=== PATIENT | female | born 1975 | race American Indian/Alaskan Native ===

== ENCOUNTER 2018-10-28 10:41 | Emergency (ER) | payer BC ==
[2018-10-28 10:54] VITALS: BP 158/99
[2018-10-28] MEDS ORDERED: Penicillin G Benzathine/Procaine 600-600 1.2 Millunits/2 ML Syringe IM ONE (11:20)
--- NOTE | 2018-10-28 11:24 | EDM.PDOC ---
ED HPI GENERAL MEDICAL PROBLEM - General Chief Complaint: ENT Problem Stated Complaint: SORE THROAT & EAR Time Seen by Provider: 10/28/18 11:21 Source of Information: Reports: Patient History Limitations: Reports: No Limitations - History of Present Illness INITIAL COMMENTS - FREE TEXT/NARRATIVE: c/o recurrent h/o sore throat since yesterday, amox works ok but prefer IM. Throat Pain Score (Numeric/FACES): 6 - Related Data Allergies Allergy/AdvReac Type Severity Reaction Status Date / Time Sulfa (Sulfonamide Allergy Swollen Verified 10/28/18 10:50 Antibiotics) Eyes Home Meds: Home Meds Atenolol [Tenormin] 25 mg PO DAILY 08/30/15 [History] Hydroxychloroquine Sulfate [Plaquenil] 200 mg PO DAILY 08/30/15 [History] Ibuprofen 800 mg PO BID 08/30/15 [History] Lisinopril [Prinivil] 80 mg PO DAILY 08/30/15 [History] traMADol [Ultram] 50 mg PO Q6H PRN 08/30/15 [History] Past Medical History HEENT History: Reports: Impaired Vision Cardiovascular History: Reports: High Cholesterol, Hypertension Respiratory History: Reports: Asthma Gastrointestinal History: Reports: None Genitourinary History: Reports: None 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 Musculoskeletal History: Reports: Back Pain, Chronic Neurological History: Reports: Migraines Psychiatric History: Reports: None Endocrine/Metabolic History: Reports: Obesity/BMI 30+ Hematologic History: Reports: None Immunologic History: Reports: SLE Other Immunologic History: lupus Oncologic (Cancer) History: Reports: None Dermatologic History: Reports: None - Infectious Disease History Infectious Disease History: Reports: None - Past Surgical History Head Surgeries/Procedures: Reports: None Neurological Surgical History: Reports: None Musculoskeletal Surgical History: Reports: Other (See Below) Social & Family History - Family History Family Medical History: Noncontributory - Tobacco Use Smoking Status *Q: Never Smoker Second Hand Smoke Exposure: No - Caffeine Use Caffeine Use: Reports: Coffee - Recreational Drug Use Recreational Drug Use: No - Sexual History Sexual History: Reports: None - Living Situation & Occupation Living situation: Reports: Single Occupation: Employed ED ROS ENT - Review of Systems Review Of Systems: ROS reveals no pertinent complaints other than HPI. ED EXAM, ENT - Physical Exam Exam: See Below Exam Limited By: No Limitations General Appearance: Alert, WD/WN, Mild Distress, Other (discomfort) Ears: Hearing Grossly Normal Mouth/Throat: Pharyngeal Erythema, Tonsillar Erythema, Tonsillar Swelling. No: Tonsillar Exudates Head: Atraumatic Neck: Non-Tender, Full Range of Motion Respiratory/Chest: No Respiratory Distress Cardiovascular: Regular Rate, Rhythm GI/Abdominal: Soft, Non-Tender Neurological: Alert, Oriented, Normal Cognition, Normal Gait, No Motor/Sensory Deficits Psychiatric: Normal Affect, Normal Mood Skin: Warm, Dry, Normal Color Lymphatic: No Adenopathy Course - Vital Signs Last Recorded V/S: Last Vital Signs Temp 35.7 C 10/28/18 10:52 Pulse 100 10/28/18 10:52 Resp 18 10/28/18 10:52 BP 158/99 H 10/28/18 10:52 Pulse Ox 99 10/28/18 10:52 - Orders/Labs/Meds Orders: Active Orders 24 hr Category Date Time Status CULTURE STREP A CONFIRMATION [RM] Stat Lab 10/28/18 10:55 Results STREP SCRN A RAPID W CULT CONF [RM] Stat Lab 10/28/18 10:55 Results Meds: Medications Discontinued Medications Generic Name Dose Route Start Last Admin Trade Name Freq PRN Reason Stop Dose Admin Penicillin G Procaine/Benzathine 1.2 millunits 10/28/18 11:20 10/28/18 11:36 Bicillin C-R 600/600 IM 10/28/18 11:21 1.2 millunits ONETIME ONE Administration Departure - Departure Time of Disposition: 11:45 Disposition: Home, Self-Care 01 Condition: Good Clinical Impression: Tonsillopharyngitis - Discharge Information Instructions: Tonsillitis, [id number] Forms: ED Department Discharge Additional Instructions: 1) try salt water gargle 2) avoid solid foods next 48 hours 3) follow up at clinic - My Orders Last 24 Hours: My Active Orders 10/28/18 10:55 CULTURE STREP A CONFIRMATION [RM] Stat STREP SCRN A RAPID W CULT CONF [RM] Stat - Assessment/Plan Last 24 Hours: My Active Orders 10/28/18 10:55 CULTURE STREP A CONFIRMATION [RM] Stat STREP SCRN A RAPID W CULT CONF [RM] Stat
== END 2018-10-28 11:48 | disposition home or self-care (01) ==
LOC: DL.ED 10:41
DX: J03.90 Acute tonsillitis, unspecified (principal); I10 Essential (primary) hypertension; E66.9 Obesity, unspecified; Z88.2 Allergy status to sulfonamides
CPT/HCPCS: 87081; 87430; 96372; 99283; J0558

== ENCOUNTER 2018-11-12 17:41 | Emergency (ER) | payer BC ==
[2018-11-12 18:06] VITALS: BP 157/96; PULSE 83
[2018-11-12] MEDS ORDERED: Promethazine 25 MG/ML SDV IM ONE (19:01)
--- NOTE | 2018-11-12 19:06 | EDM.PDOC ---
ED HPI GENERAL MEDICAL PROBLEM - General Chief Complaint: Neck Problem Stated Complaint: BACK/NECK PAIN Time Seen by Provider: 11/12/18 19:03 Source of Information: Reports: Patient History Limitations: Reports: No Limitations - History of Present Illness INITIAL COMMENTS - FREE TEXT/NARRATIVE: onset left shoulder pain and neck pain since Tuesday. denies trauma. 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 Left Neck Pain Score (Numeric/FACES): 8 - Related Data Allergies Allergy/AdvReac Type Severity Reaction Status Date / Time Sulfa (Sulfonamide Allergy Swollen Verified 11/12/18 18:03 Antibiotics) Eyes Home Meds: Home Meds Atenolol [Tenormin] 25 mg PO DAILY 08/30/15 [History] Hydroxychloroquine Sulfate [Plaquenil] 200 mg PO DAILY 08/30/15 [History] Ibuprofen 800 mg PO BID 08/30/15 [History] Lisinopril [Prinivil] 80 mg PO DAILY 08/30/15 [History] traMADol [Ultram] 50 mg PO Q6H PRN 08/30/15 [History] Past Medical History HEENT History: Reports: Impaired Vision Cardiovascular History: Reports: High Cholesterol, Hypertension Respiratory History: Reports: Asthma Gastrointestinal History: Reports: None Genitourinary History: Reports: None 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 Musculoskeletal History: Reports: Back Pain, Chronic Neurological History: Reports: Migraines Psychiatric History: Reports: None Endocrine/Metabolic History: Reports: Obesity/BMI 30+ Hematologic History: Reports: None Immunologic History: Reports: SLE Other Immunologic History: lupus Oncologic (Cancer) History: Reports: None Dermatologic History: Reports: None - Infectious Disease History Infectious Disease History: Reports: None - Past Surgical History Head Surgeries/Procedures: Reports: None Female Surgical History: Reports: Hysterectomy Neurological Surgical History: Reports: None Musculoskeletal Surgical History: Reports: Other (See Below) Social & Family History - Family History Family Medical History: Noncontributory - Tobacco Use Smoking Status *Q: Never Smoker Second Hand Smoke Exposure: No - Caffeine Use Caffeine Use: Reports: None - Recreational Drug Use Recreational Drug Use: No - Sexual History Sexual History: Reports: None - Living Situation & Occupation Living situation: Reports: Single Occupation: Employed ED ROS GENERAL - Review of Systems Review Of Systems: ROS reveals no pertinent complaints other than HPI. ED EXAM, UPPER BACK/NECK PAIN - Physical Exam Exam: See Below Exam Limited By: No Limitations General Appearance: Alert, WD/WN, Mild Distress, Other (discomfort) Ears Exam: Hearing Grossly Normal Throat/Mouth Exam: Normal Voice, No Airway Compromise Head Exam: Atraumatic Neck Exam: Full Range of Motion, Normal Alignment, Paraspinous Muscle Tender, Tenderness, Tender Lateral, Other (left C5-6-7 trapezius region) Nexus Criteria: No: Posterior, Midline Cervical Tenderness, Evidence of Intoxication, Altered Level of Consciousness, Focal Neurological Deficit, Painful Distraction Injuries Cardiovascular/Respiratory: Regular Rate, Rhythm, No Respiratory Distress GI/Abdominal: Soft, Non-Tender Extremities: Other (left should ROM tender at trapezius region) Neurologic: No Motor/Sensory Deficits, Alert, Oriented x 3 Psychiatric: Tearful Skin Exam: Normal Color, Warm/Dry Lymphatic: No Adenopathy Course - Vital Signs Last Recorded V/S: Last Vital Signs Temp 36.3 C 11/12/18 18:04 Pulse 83 11/12/18 18:04 Resp 20 11/12/18 18:04 BP 157/96 H 11/12/18 18:04 Pulse Ox 98 11/12/18 18:04 - Orders/Labs/Meds Meds: Medications Discontinued Medications Generic Name Dose Route Start Last Admin Trade Name Freq PRN Reason Stop Dose Admin Hydrocodone Bitart/Acetaminophen 1 tab 11/12/18 19:43 [place] 325-10 Mg PO 11/12/18 19:44 ONETIME ONE Orphenadrine Citrate 60 mg 11/12/18 19:15 Norflex IM Q12H DESIREE Orphenadrine Citrate 60 mg 11/12/18 19:07 11/12/18 19:12 Norflex IM 11/12/18 19:08 60 mg ONETIME ONE Administration Promethazine HCl 25 mg 11/12/18 19:01 11/12/18 19:13 Phenergan IM 11/12/18 19:02 25 mg ONETIME ONE Administration - Re-Assessments/Exams Free Text/Narrative Re-Assessment/Exam: 11/12/18 19:44 re-exam; s/p norflex + phenergan = better Departure - Departure Time of Disposition: 19:45 Disposition: Home, Self-Care 01 Condition: Good Clinical Impression: Trapezius muscle spasm - Discharge Information Instructions: Muscle Cramps and Spasms, [id number] Forms: ED Department Discharge Additional Instructions: 1) try ice or heat to sore areas 2) follow up at clinic 3) avoid lifting rx given; flexeril 10mg tid prn x 12
[2018-11-12] MEDS ORDERED: Acetaminophen/HYDROcodone 325-10 MG Tab PO ONE (19:43)
== END 2018-11-12 19:57 | disposition home or self-care (01) ==
LOC: DL.ED 17:41
DX: M62.830 Muscle spasm of back (principal); E78.00 Pure hypercholesterolemia, unspecified; I10 Essential (primary) hypertension; J45.909 Unspecified asthma, uncomplicated; Z88.2 Allergy status to sulfonamides; Z79.899 Other long term (current) drug therapy
CPT/HCPCS: 96372; 99282; A9270; J2550; J2360

== ENCOUNTER 2019-07-28 12:28 | Emergency (ER) | payer BC ==
[2019-07-28] MEDS ORDERED: Aspirin 81 MG Tab.Chew PO ONE (12:49)
[2019-07-28] MEDS ORDERED: Nitroglycerin 0.4 MG Tab.SL SL ONE ×2 (12:56→13:34)
[2019-07-28 13:36] LABS: ANION GAP 13.9; CHLORIDE,CL 110 mmol/L (101-111); SODIUM,NA 136 mmol/L (135-145)
[2019-07-28 17:01] VITALS: BP 138/87; PULSE 104
--- NOTE | 2019-07-28 17:46 | EDM.PDOC ---
Scribed by Mariela Finnegan 07/28/19 [id number] for Yasmin Bower PA-C ED HPI GENERAL MEDICAL PROBLEM - General Chief Complaint: Chest Pain Stated Complaint: CHEST PAIN, NECK AND NAUSEA Time Seen by Provider: 07/28/19 13:04 Source of Information: Reports: Patient, RN, RN Notes Reviewed History Limitations: Reports: No Limitations - History of Present Illness INITIAL COMMENTS - FREE TEXT/NARRATIVE: Patient presents to ER with chest pain across the chest this A.M. and nausea at onset. She has some radiation to left arm 08/30. Now the nausea is absent and arm pain gone. No shortness of breath. No fever, chills or urinary symptoms. She has had symptoms with a cough for the last week. Onset: Today Duration: Constant Location: Reports: Chest Quality: Reports: Ache Severity: Moderate Improves with: Reports: None Worsens with: Reports: None Associated Symptoms: Reports: No Other Symptoms Chest Pain Score (Numeric/FACES): 4 - Related Data Allergies Allergy/AdvReac Type Severity Reaction Status Date / Time Sulfa (Sulfonamide Allergy Swollen Verified 07/28/19 12:35 Antibiotics) Eyes Home Meds: Home Meds Atenolol [Tenormin] 25 mg PO DAILY 08/30/15 [History] Hydroxychloroquine Sulfate [Plaquenil] 200 mg PO DAILY 08/30/15 [History] Lisinopril [Prinivil] 80 mg PO DAILY 08/30/15 [History] traMADol [Ultram] 50 mg PO Q6H PRN 08/30/15 [History] Meloxicam 1 tab PO DAILY 07/28/19 [History] Past Medical History HEENT History: Reports: Impaired Vision Cardiovascular History: Reports: High Cholesterol, Hypertension Respiratory History: Reports: Asthma Gastrointestinal History: Reports: None Genitourinary History: Reports: None 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 Musculoskeletal History: Reports: Back Pain, Chronic Neurological History: Reports: Migraines Psychiatric History: Reports: None Endocrine/Metabolic History: Reports: Obesity/BMI 30+ Hematologic History: Reports: None Immunologic History: Reports: SLE Other Immunologic History: lupus Oncologic (Cancer) History: Reports: None Dermatologic History: Reports: None - Infectious Disease History Infectious Disease History: Reports: None - Past Surgical History Head Surgeries/Procedures: Reports: None Female Surgical History: Reports: Hysterectomy Neurological Surgical History: Reports: None Musculoskeletal Surgical History: Reports: Other (See Below) Social & Family History - Family History Family Medical History: Noncontributory - Tobacco Use Smoking Status *Q: Current Every Day Smoker Years of Tobacco use: 20 Packs/Tins Daily: 0.5 - Caffeine Use Caffeine Use: Reports: Tea - Recreational Drug Use Recreational Drug Use: No - Sexual History Sexual History: Reports: None - Living Situation & Occupation Living situation: Reports: Single Occupation: Employed ED ROS GENERAL - Review of Systems Review Of Systems: Comprehensive ROS is negative, except as noted in HPI. ED EXAM, GENERAL - Physical Exam Exam: See Below Exam Limited By: No Limitations General Appearance: Obese Eye Exam: Bilateral Eye: EOMI, Normal Inspection, PERRL Ears: Normal External Exam, Normal Canal, Hearing Grossly Normal, Normal TMs Nose: Normal Inspection, Normal Mucosa, No Blood Throat/Mouth: Normal Inspection, Normal Lips, Normal Teeth, Normal Gums, Normal Oropharynx, Normal Voice, No Airway Compromise Head: Atraumatic, Normocephalic Neck: Normal Inspection, Supple, Non-Tender, Full Range of Motion Respiratory/Chest: Lungs Clear, Normal Breath Sounds. No: Crackles, Rales, Rhonchi, Wheezing Cardiovascular: Normal Peripheral Pulses, Regular Rate, Rhythm, No Edema, No Gallop, No JVD, No Murmur, No Rub GI/Abdominal: Normal Bowel Sounds (x4. ), Soft, Non-Tender, No Organomegaly, No Distention, No Abnormal Bruit, No Mass. No: Hepatomegaly, Splenomegaly (Female) Exam: Deferred Rectal (Female) Exam: Deferred Back Exam: Normal Inspection, Full Range of Motion. No: CVA Tenderness (L), CVA Tenderness (R) Extremities: Normal Inspection, Normal Range of Motion, Non-Tender, Normal Capillary Refill, No Pedal Edema Neurological: Alert, Oriented, CN II-XII Intact, Normal Cognition, Normal Gait, Normal Reflexes, No Motor/Sensory Deficits Psychiatric: Normal Affect, Normal Mood Skin Exam: Warm, Dry, Intact, Normal Color, No Rash EKG INTERPRETATION EKG Date: 07/28/19 Time: 12:37 Rhythm: Other (sinus rhythm) Rate (Beats/Min): 93 EKG Interpretation Comments: consider left atrial enlargement. Course - Vital Signs Last Recorded V/S: Last Vital Signs Temp 97.5 F 07/28/19 12:36 Pulse 104 H 07/28/19 17:00 Resp 20 07/28/19 17:00 BP 138/87 07/28/19 17:00 Pulse Ox 98 07/28/19 17:00 - Orders/Labs/Meds Orders: Active Orders 24 hr Category Date Time Status EKG Documentation Completion [RC] URGENT Care 07/28/19 12:49 Active EKG Documentation Completion [RC] URGENT Care 07/28/19 16:50 Active Chest 1V Frontal [CR] Urgent Exams 07/28/19 12:49 Taken Labs: Laboratory Tests 07/28/19 07/28/19 07/28/19 Range/Units 13:11 13:11 13:11 WBC 6.5 (5.0-10.0) 10^3/uL RBC 5.40 (4.2-5.4) 10^6/uL Hgb 15.2 (12.0-16.0) g/dL Hct 44.4 (37.0-47.0) % MCV 82.2 (80-100) fL MCH 28.1 (27.0-34.0) pg MCHC 34.2 (33.0-35.0) g/dL Plt Count 201 (150-450) 10^3/uL Neut % (Auto) 75.1 (42.2-75.2) % Lymph % (Auto) 18.3 L (20.5-50.1) % Traverse % (Auto) 6.1 (2-8) % Eos % (Auto) 0.3 L (1.0-3.0) % Baso % (Auto) 0.2 (0.0-1.0) % D-Dimer, Quantitative 125 (0-400) ng/mL Sodium 136 (135-145) mmol/L Potassium 3.9 (3.6-5.0) mmol/L Chloride 110 (101-111) mmol/L Carbon Dioxide 16.0 L (21.0-31.0) mmol/L Anion Gap 13.9 BUN 19 H (7-18) mg/dL Creatinine 0.5 L (0.6-1.3) mg/dL Est Cr Clr Drug Dosing 121.25 mL/min Estimated GFR (MDRD) > 60 BUN/Creatinine Ratio 38.00 Glucose 101 (74-105) mg/dL Calcium 8.9 (8.4-10.2) mg/dl Total Bilirubin 0.7 (0.2-1.0) mg/dL AST 23 (10-42) IU/L ALT 21 (10-60) IU/L Alkaline Phosphatase 69 (42-121) IU/L CK-MB (CK-2) (0.4-4.7) ng/mL Troponin I < 0.02 (0.00-0.02) ng/ml Total Protein 7.8 (6.7-8.2) g/dl Albumin 4.0 (3.2-5.5) g/dl Globulin 3.8 Albumin/Globulin Ratio 1.05 07/28/19 07/28/19 Range/Units 13:11 16:50 WBC (5.0-10.0) 10^3/uL RBC (4.2-5.4) 10^6/uL Hgb (12.0-16.0) g/dL Hct (37.0-47.0) % MCV (80-100) fL MCH (27.0-34.0) pg MCHC (33.0-35.0) g/dL Plt Count (150-450) 10^3/uL Neut % (Auto) (42.2-75.2) % Lymph % (Auto) (20.5-50.1) % Traverse % (Auto) (2-8) % Eos % (Auto) (1.0-3.0) % Baso % (Auto) (0.0-1.0) % D-Dimer, Quantitative (0-400) ng/mL Sodium (135-145) mmol/L Potassium (3.6-5.0) mmol/L Chloride (101-111) mmol/L Carbon Dioxide (21.0-31.0) mmol/L Anion Gap BUN (7-18) mg/dL Creatinine (0.6-1.3) mg/dL Est Cr Clr Drug Dosing mL/min Estimated GFR (MDRD) BUN/Creatinine Ratio Glucose (74-105) mg/dL Calcium (8.4-10.2) mg/dl Total Bilirubin (0.2-1.0) mg/dL AST (10-42) IU/L ALT (10-60) IU/L Alkaline Phosphatase (42-121) IU/L CK-MB (CK-2) 3.00 (0.4-4.7) ng/mL Troponin I < 0.02 (0.00-0.02) ng/ml Total Protein (6.7-8.2) g/dl Albumin (3.2-5.5) g/dl Globulin Albumin/Globulin Ratio Meds: Medications Discontinued Medications Generic Name Dose Route Start Last Admin Trade Name Baldo PRN Reason Stop Dose Admin Aspirin 324 mg 07/28/19 12:49 07/28/19 12:55 Aspirin PO 07/28/19 12:50 324 mg ONETIME ONE Administration Nitroglycerin 0.4 mg 07/28/19 12:56 07/28/19 13:00 Nitrostat SL 07/28/19 12:57 0.4 mg ONETIME ONE Administration Nitroglycerin 0.4 mg 07/28/19 13:34 07/28/19 13:35 Nitrostat SL 07/28/19 13:35 0.4 mg ONETIME ONE Administration - Radiology Interpretation Free Text/Narrative:: CXR No acute findings, see report - Re-Assessments/Exams Free Text/Narrative Re-Assessment/Exam: 07/28/19 17:45 Pain free,No complaints busy texting on phone, Results reviewed. No questions from patient. Departure - Departure Time of Disposition: 17:29 Disposition: Home, Self-Care 01 Condition: Good Clinical Impression: Non-cardiac chest pain Instructions: Nonspecific Chest Pain, [id number] Forms: ED Department Discharge Additional Instructions: light bland diet low acid foods, low fat foods avoid tobacco and caffeine clinic follow up this weed Sepsis Event Note - Evaluation Sepsis Screening Result: No Definite Risk - Focused Exam Vital Signs: Vital Signs Temp Pulse Resp BP BP Pulse Ox 07/28/19 17:00 104 H 20 138/87 98 07/28/19 14:55 90 24 H 126/82 99 07/28/19 14:10 98 23 H 126/92 H 99 07/28/19 13:35 130/78 07/28/19 13:00 146/94 H 07/28/19 12:36 97.5 F 93 16 143/85 H 100 Date Exam was Performed: 07/28/19 Time Exam was Performed: 17:43 - My Orders Last 24 Hours: My Active Orders 07/28/19 12:49 EKG Documentation Completion [RC] URGENT Chest 1V Frontal [CR] Urgent 07/28/19 16:50 EKG Documentation Completion [RC] URGENT - Assessment/Plan Last 24 Hours: My Active Orders 07/28/19 12:49 EKG Documentation Completion [RC] URGENT Chest 1V Frontal [CR] Urgent 07/28/19 16:50 EKG Documentation Completion [RC] URGENT I have read and agree with the documentation that has been completed regarding this visit. By signing this record, I attest that the documentation was completed in my physical presence and is an accurate record of the encounter.
== END 2019-07-28 18:30 | disposition home or self-care (01) ==
LOC: DL.ED 12:28
DX: R07.89 Other chest pain (principal); J45.909 Unspecified asthma, uncomplicated; I10 Essential (primary) hypertension; E66.9 Obesity, unspecified; Z68.43 Body mass index [BMI] 50.0-59.9, adult; M32.9 Systemic lupus erythematosus, unspecified; Z88.2 Allergy status to sulfonamides; Z79.899 Other long term (current) drug therapy; F17.210 Nicotine dependence, cigarettes, uncomplicated
CPT/HCPCS: 36415; 71045; 80053; 82553; 84484; 85025; 85379; 93005; 99285; A9270

== ENCOUNTER 2020-05-26 08:38 | Inpatient (IN) | payer BC, OTHER ==
--- NOTE | 2020-05-26 08:45 | EDM.PDOC ---
ED HPI GENERAL MEDICAL PROBLEM - General Chief Complaint: Respiratory Problem Stated Complaint: AMBULANCE Time Seen by Provider: 05/26/20 08:43 Source of Information: Reports: Patient, Old Records, RN, RN Notes Reviewed History Limitations: Reports: No Limitations - History of Present Illness INITIAL COMMENTS - FREE TEXT/NARRATIVE: Pt arrives from home by ambulance with c/o 2 weeks of progressively worsening shortness of breath. She admits to mild sore throat, and sharp chest pain with deep inspiration or cough. Activity such as walking makes the shortness of breath much worse. She denies radiating pain, fever, chills, headache, loss of taste or smell, or any known COVID exposures. Pt has Hx of asthma. Onset: Gradual Duration: Week(s): (1), Constant, Getting Worse Location: Reports: Chest Quality: Reports: Ache, Pressure Severity: Moderate Improves with: Reports: None Worsens with: Reports: Breathing, Other (Activity/Exertion) Context: Denies: Sick Contact Associated Symptoms: Reports: No Other Symptoms Chest Pain Score (Numeric/FACES): 5 - Related Data Allergies Allergy/AdvReac Type Severity Reaction Status Date / Time Sulfa (Sulfonamide Allergy Swollen Verified 05/26/20 08:49 Antibiotics) Eyes Home Meds: Home Meds Hydroxychloroquine Sulfate [Plaquenil] 200 mg PO DAILY 08/30/15 [History] Lisinopril [Prinivil] 80 mg PO DAILY 08/30/15 [History] atenoloL [Tenormin] 25 mg PO DAILY 08/30/15 [History] traMADol [Ultram] 50 mg PO Q6H PRN 08/30/15 [History] Meloxicam 1 tab PO DAILY 07/28/19 [History] Past Medical History HEENT History: Reports: Impaired Vision Cardiovascular History: Reports: High Cholesterol, Hypertension Respiratory History: Reports: Asthma Gastrointestinal History: Reports: None Genitourinary History: Reports: None 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 TAX ADVISOR 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: Reports: None Musculoskeletal History: Reports: Back Pain, Chronic Neurological History: Reports: Migraines Psychiatric History: Reports: None Endocrine/Metabolic History: Reports: Obesity/BMI 30+ Hematologic History: Reports: None Immunologic History: Reports: SLE Other Immunologic History: lupus Oncologic (Cancer) History: Reports: None Dermatologic History: Reports: None - Infectious Disease History Infectious Disease History: Reports: None - Past Surgical History Head Surgeries/Procedures: Reports: None Female Surgical History: Reports: Hysterectomy Neurological Surgical History: Reports: None Musculoskeletal Surgical History: Reports: Other (See Below) Social & Family History - Family History Family Medical History: No Pertinent Family History - Caffeine Use Caffeine Use: Reports: Tea - Sexual History Sexual History: Reports: None - Living Situation & Occupation Living situation: Reports: Single Occupation: Employed ED ROS GENERAL - Review of Systems Review Of Systems: Comprehensive ROS is negative, except as noted in HPI. ED EXAM, GENERAL - Physical Exam Exam: See Below Exam Limited By: No Limitations General Appearance: Alert, No Apparent Distress, Anxious, Obese Eye Exam: Bilateral Eye: Normal Inspection Nose: Normal Inspection, Normal Mucosa, No Blood Throat/Mouth: Normal Lips, Normal Oropharynx, Normal Voice, No Airway Compromise, Other (Mild pharyngeal erythema) Head: Atraumatic, Normocephalic Neck: Normal Inspection, Supple, Non-Tender, Full Range of Motion Respiratory/Chest: No Respiratory Distress, No Accessory Muscle Use, Chest Non- Tender, Wheezing, Other (Tight breath sounds with increased work of breathing). No: Crackles, Rales, Rhonchi, Stridor Cardiovascular: Regular Rate, Rhythm, No Edema, Tachycardia GI/Abdominal: Normal Bowel Sounds, Soft, Non-Tender, Other (Severely obese abdomen) Back Exam: Normal Inspection Extremities: Normal Inspection, Normal Range of Motion, Non-Tender, No Pedal Edema, Normal Capillary Refill. No: Joint Swelling, Chuck's Sign Neurological: Alert, Oriented, CN II-XII Intact, Normal Cognition, Normal Gait, No Motor/Sensory Deficits Psychiatric: Anxious Skin Exam: Warm, Dry, Intact, Normal Color, No Rash #1 Interpretation EKG Date: 05/26/20 Time: 08:43 Rhythm: Other (Sinus Tach) Rate (Beats/Min): 106 [place]: Normal P-Wave: Present QRS: Other (Inferior Q waves) ST-T: Other (Borderline flat T waves in diffuse leads. No acute ischemic changes.) QT: Normal Comparison: No Change Course - Vital Signs Last Recorded V/S: Last Vital Signs Temp 97.7 F 05/26/20 08:52 Pulse 102 H 05/26/20 09:32 Resp 27 H 05/26/20 08:52 BP 156/91 H 05/26/20 08:52 Pulse Ox 97 05/26/20 08:52 - Orders/Labs/Meds Orders: Active Orders 24 hr Category Date Time Status EKG 12 Lead [EKG Documentation Completion] [] STAT Care 05/26/20 08:42 Active Peripheral IV Care [RC] . DIRECTED Care 05/26/20 09:52 Active RT Aerosol Therapy [RC] ASDIRECTED Care 05/26/20 09:01 Active CULTURE STREP A CONFIRMATION [] Stat Lab 05/26/20 09:26 Results STREP SCRN A RAPID W CULT CONF [] Stat Lab 05/26/20 09:26 Results Heparin Sodium/0.45% NaCl [Heparin 25,000 Units in 1/2 Med 05/26/20 12:45 Active NS 500 ML] 25,000 units in 500 ml IV TITRATE Sodium Chloride 0.9% [Saline Flush] Med 05/26/20 09:51 Active 10 ml FLUSH ASDIRECTED PRN Peripheral IV Insertion Adult [OM.PC] Stat Oth 05/26/20 09:51 Ordered Medication Orders Heparin Sodium/Sodium Chloride (Heparin 25,000 Units In 1/2 Ns 500 Ml) 25,000 units in 500 mls @ 50.948 mls/hr IV TITRATE DESIREE; Protocol Last Admin: 05/26/20 12:40 Dose: 18.3 units/kg/hr, 51.797 mls/hr Documented by: NAYE Cosigned by: TIANNA Sodium Chloride (Saline Flush) 10 ml FLUSH ASDIRECTED PRN PRN Reason: Keep Vein Open Labs: Laboratory Tests 05/26/20 05/26/20 05/26/20 Range/Units 08:38 08:56 08:56 WBC 2.2 L (5.0-10.0) 10^3/uL RBC 4.35 (4.2-5.4) 10^6/uL Hgb 11.3 L D (12.0-16.0) g/dL Hct 33.9 L (37.0-47.0) % MCV 77.9 L D (80-100) fL MCH 26.0 L (27.0-34.0) pg MCHC 33.3 (33.0-35.0) g/dL Plt Count 119 L D (150-450) 10^3/uL Neut % (Auto) 76.4 H (42.2-75.2) % Lymph % (Auto) 19.0 L (20.5-50.1) % [place] % (Auto) 2.7 (2-8) % Eos % (Auto) 1.4 (1.0-3.0) % Baso % (Auto) 0.5 (0.0-1.0) % PT (9.0-12.0) SEC INR (0.9-1.2) APTT (22.0-34.0) SEC D-Dimer, Quantitative (0-400) ng/mL Sodium 144 (136-145) mmol/L Potassium 3.0 L (3.5-5.1) mmol/L Chloride 107 (98-107) mmol/L Carbon Dioxide 21 (21-32) mmol/L Anion Gap 19.0 H (7-13) mEq/L BUN 21 H (7-18) mg/dL Creatinine 0.72 (0.55-1.02) mg/dL Est Cr Clr Drug Dosing 83.34 mL/min Estimated GFR (MDRD) > 60 BUN/Creatinine Ratio 29.2 (No establ ref range) Glucose 118 H (74-99) mg/dL Calcium 8.1 L (8.5-10.1) mg/dL Magnesium (1.8-2.4) mg/dL Total Bilirubin 0.3 (0.2-1.0) mg/dL AST 18 (15-37) U/L ALT 12 L (14-59) U/L Alkaline Phosphatase 76 (46-116) U/L Troponin I < 0.017 (0.000-0.056) ng/mL C-Reactive Protein 12.8 H (0.0-0.9) mg/dL Total Protein 6.7 (6.4-8.2) g/dL Albumin 2.5 L (3.4-5.0) g/dL Globulin 4.2 Albumin/Globulin Ratio 0.60 HCG, Qual Negative SARS-CoV-2 RNA (TAVO) Negative (NEGATIVE) 05/26/20 05/26/20 Range/Units 08:56 08:56 WBC (5.0-10.0) 10^3/uL RBC (4.2-5.4) 10^6/uL Hgb (12.0-16.0) g/dL Hct (37.0-47.0) % MCV (80-100) fL MCH (27.0-34.0) pg MCHC (33.0-35.0) g/dL Plt Count (150-450) 10^3/uL Neut % (Auto) (42.2-75.2) % Lymph % (Auto) (20.5-50.1) % [place] % (Auto) (2-8) % Eos % (Auto) (1.0-3.0) % Baso % (Auto) (0.0-1.0) % PT 10.9 (9.0-12.0) SEC INR 1.2 (0.9-1.2) APTT 23.8 (22.0-34.0) SEC D-Dimer, Quantitative > 5000 H (0-400) ng/mL Sodium (136-145) mmol/L Potassium (3.5-5.1) mmol/L Chloride (98-107) mmol/L Carbon Dioxide (21-32) mmol/L Anion Gap (7-13) mEq/L BUN (7-18) mg/dL Creatinine (0.55-1.02) mg/dL Est Cr Clr Drug Dosing mL/min Estimated GFR (MDRD) BUN/Creatinine Ratio (No establ ref range) Glucose (74-99) mg/dL Calcium (8.5-10.1) mg/dL Magnesium 1.9 (1.8-2.4) mg/dL Total Bilirubin (0.2-1.0) mg/dL AST (15-37) U/L ALT (14-59) U/L Alkaline Phosphatase (46-116) U/L Troponin I (0.000-0.056) ng/mL C-Reactive Protein (0.0-0.9) mg/dL Total Protein (6.4-8.2) g/dL Albumin (3.4-5.0) g/dL Globulin Albumin/Globulin Ratio HCG, Qual SARS-CoV-2 RNA (TAVO) (NEGATIVE) Meds: Medications Generic Name Dose Route Start Last Admin Trade Name Freq PRN Reason Stop Dose Admin Heparin Sodium/Sodium Chloride 25,000 units in 500 mls @ 50.948 mls/hr 05/26/20 12:45 05/26/20 12:40 Heparin 25,000 Units In 1/2 Ns 500 Ml IV 18.3 units/kg/hr TITRATE DESIREE 51.797 mls/hr Administration Protocol 18 UNITS/KG/HR Sodium Chloride 10 ml 05/26/20 09:51 Saline Flush FLUSH ASDIRECTED PRN Keep Vein Open Discontinued Medications Generic Name Dose Route Start Last Admin Trade Name Baldo PRN Reason Stop Dose Admin Albuterol/Ipratropium 3 ml 05/26/20 09:01 05/26/20 09:24 Duoneb 3.0-0.5 Mg/3 Ml NEB 05/26/20 09:02 3 ml ONETIME ONE Administration Heparin Sodium (Porcine) 5,000 units 05/26/20 12:33 05/26/20 12:40 Heparin Sodium IVPUSH 05/26/20 12:34 5,000 units .BOLUS ONE Administration Sodium Chloride 1,000 mls @ 999 mls/hr 05/26/20 09:53 05/26/20 09:59 Normal Saline IV 05/26/20 10:53 999 mls/hr .BOLUS ONE Administration Magnesium Sulfate 4 gm in 100 mls @ 300 mls/hr 05/26/20 09:54 05/26/20 11:08 Magnesium Sulfate In Water Premix IV 05/26/20 10:13 300 mls/hr ONETIME ONE Administration Iopamidol 100 ml 05/26/20 09:51 05/26/20 12:09 Isovue-370 (76%) IVPUSH 05/26/20 09:52 83 ml ONETIME ONE Administration Methylprednisolone Sodium Succinate 125 mg 05/26/20 09:01 05/26/20 09:25 Solu-Medrol IVPUSH 05/26/20 09:02 125 mg ONETIME ONE Administration Potassium Chloride 40 meq 05/26/20 09:46 05/26/20 09:53 Klor-Con 10 PO 05/26/20 09:47 40 meq ONETIME ONE Administration - Radiology Interpretation Free Text/Narrative:: [facility] Final Radiology Report Call: [phone] assistance Online chat: [email or web address] Name: SHIRLEY TERAN Age: 45Years F Date: 05/26/2020 SSN: -- : [id number] Study: CR CHEST 1V FRONTAL Requesting Physician: SHANTELLE GLASGOW Images: 1 Addl Studies: Provided Clinical History: chest pain, shortness of breath Contrast: Contrast Medium: Contrast Amount: Contrast Method: CONFIDENTIALITY STATEMENT This report is intended only for use by the referring physician, and only in accordance with law. If you received this in error, call [phone]. Page 1 of 1 PROCEDURE INFORMATION: Exam: XR Chest, 1 View Exam date and time: 05/26/2020 9:11 AM Age: 45 years old Clinical indication: Chest pain; Additional info: Chest pain, shortness of breath TECHNIQUE: Imaging protocol: XR of the chest Views: 1 view. COMPARISON: CR Chest 1V Frontal 07/28/2019 1:00 PM FINDINGS: Lungs: Unremarkable. No consolidation. Pleural space: Unremarkable. No pleural effusion. No pneumothorax. Heart/Mediastinum: Unremarkable. No cardiomegaly. Bones/joints: Unremarkable. Other findings: Shallow inspiration. IMPRESSION: No acute findings. Shallow inspiration. Thank you for allowing us to participate in the care of your patient. Dictated and Authenticated by: Sindy Maya MD 05/26/2020 9:28 AM Central Time ([place] & [place]) CT Chest PE Study: PE Rt pulmonary arteries, Rt middle and lower lobe peripheral pleural based densities, see Rad. report. Departure - Departure Time of Disposition: 13:03 (admitted to Dr. Lombardo) Disposition: Admitted As Inpatient 68 Condition: Fair Clinical Impression: Right pulmonary embolus, Hypokalemia - Discharge Information *PRESCRIPTION DRUG MONITORING PROGRAM REVIEWED*: Not Applicable *COPY OF PRESCRIPTION DRUG MONITORING REPORT IN PATIENT YAS: Not Applicable Forms: ED Department Discharge Sepsis Event Note (ED) - Focused Exam Vital Signs: Vital Signs Temp Pulse Resp BP Pulse Ox 05/26/20 09:32 102 H 05/26/20 08:52 97.7 F 105 H 27 H 156/91 H 97 - My Orders Last 24 Hours: My Active Orders 05/26/20 08:42 EKG 12 Lead [EKG Documentation Completion] [RC] STAT 05/26/20 09:01 RT Aerosol Therapy [RC] ASDIRECTED 05/26/20 09:26 CULTURE STREP A CONFIRMATION [RM] Stat STREP SCRN A RAPID W CULT CONF [RM] Stat 05/26/20 09:51 Sodium Chloride 0.9% [Saline Flush] 10 ml FLUSH ASDIRECTED PRN Peripheral IV Insertion Adult [OM.PC] Stat 05/26/20 09:52 Peripheral IV Care [RC] . DIRECTED 05/26/20 12:45 Heparin Sodium/0.45% NaCl [Heparin 25,000 Units in 1/2 NS 500 ML] 25,000 units in 500 ml IV TITRATE - Assessment/Plan Last 24 Hours: My Active Orders 05/26/20 08:42 EKG 12 Lead [EKG Documentation Completion] [RC] STAT 05/26/20 09:01 RT Aerosol Therapy [RC] ASDIRECTED 05/26/20 09:26 CULTURE STREP A CONFIRMATION [] Stat STREP SCRN A RAPID W CULT CONF [] Stat 05/26/20 09:51 Sodium Chloride 0.9% [Saline Flush] 10 ml FLUSH ASDIRECTED PRN Peripheral IV Insertion Adult [OM.PC] Stat 05/26/20 09:52 Peripheral IV Care [RC] . DIRECTED 05/26/20 12:45 Heparin Sodium/0.45% NaCl [Heparin 25,000 Units in 1/2 NS 500 ML] 25,000 units in 500 ml IV TITRATE
[2020-05-26] MEDS ORDERED: methylPREDNISolone Sodium Succinate 125 MG/2 ML SDV IVPUSH ONE (09:01)
[2020-05-26] MEDS ORDERED: Albuterol/Ipratropium 3.0-0.5 MG/3 ML Neb Soln NEB ONE (09:01)
[2020-05-26 09:25] LABS: CHLORIDE,CL 107 mmol/L (98-107); SODIUM,NA 144 mmol/L (136-145)
--- NOTE | 2020-05-26 09:28 | CR ---
PROCEDURE INFORMATION: Exam: XR Chest, 1 View Exam date and time: 05/26/2020 9:11 AM Age: 45 years old Clinical indication: Chest pain; Additional info: Chest pain, shortness of breath TECHNIQUE: Imaging protocol: XR of the chest Views: 1 view. COMPARISON: CR Chest 1V Frontal 07/28/2019 1:00 PM FINDINGS: Lungs: Unremarkable. No consolidation. Pleural space: Unremarkable. No pleural effusion. No pneumothorax. Heart/Mediastinum: Unremarkable. No cardiomegaly. Bones/joints: Unremarkable. Other findings: Shallow inspiration. IMPRESSION: No acute findings. Shallow inspiration.
[2020-05-26] MEDS ORDERED: Potassium Chloride 10 MEQ Tab.ER PO ONE (09:46)
[2020-05-26] MEDS ORDERED: Iopamidol 755 Mg/ML 100 ML Bottle IVPUSH ONE (09:51)
[2020-05-26] MEDS ORDERED: Sodium Chloride 0.9% 10 ML Syringe FLUSH PRN ×2 (09:51→15:12)
[2020-05-26] MEDS ORDERED: Sodium Chloride 0.9% 1,000 ML IV ONE (09:53)
[2020-05-26] MEDS ORDERED: Magnesium Sulfate/Water 4 GM/100 ML BAG IV ONE (09:54)
[2020-05-26 09:57] LABS: PTT,PARTIAL THROMBOPLSTIN TIME 23.8 SEC (22.0-34.0)
[2020-05-26] MEDS ORDERED: Heparin Sodium 5,000 Units/ML Vial IVPUSH ONE (12:33)
--- NOTE | 2020-05-26 12:41 | CT ---
EXAMINATION: Chest w Cont SEX: Female AGE: 45 years CLINICAL HISTORY: 45-year-old 312 pound obese female with dyspnea, tachycardia, and serum D dimer greater than 5000. Normal WBC. COVID19 test negative. Rule out pulmonary embolism/infarct. Scan technique: Volume acquisition of data from the chest (bony thorax, lungs and mediastinum) during the intravenous administration 83 mL nonionic Isovue 370 contrast at 5 cc/s via injector per PE protocol patient was lying supine on the Siemens multislice scanner [place], [place]. All data archived in the PACS system for storage, reformatting axial/sagittal/coronal planes and study (lung, vascular and mediastinal windows). Interpretation: Equivocal but radiographically suspicious for pulmonary embolism. Clinical? 1. Peripheral pleural-based atelectatic/fibrotic densities right middle and right lower lobes. 2. *Subtle intraluminal filling defects within the corresponding, ipsilateral, pulmonary arteries suggest thrombus (on both axial and coronal imaging). 3. No sign of parenchymal lung nodule or mass lesion. No hilar/mediastinal lymphadenopathy. No effusions. 4. No focal lobar pneumonia, air bronchograms, or peripheral "groundglass" interstitial lung densities. 5. Normal cardiac silhouette. No pulmonary vascular congestion, cephalization of flow or alveolar edema. 6. No pericardial effusion. Normal caliber thoracic aorta (no aneurysm or dissection). 7. Multilevel thoracic disc disease. Hypertrophic arthritic changes mildly kyphotic dorsal spine.
[2020-05-26] MEDS ORDERED: Heparin Sodium/0.45% NaCl 25,000 UNITS/500 ML BAG IV SCH (12:45)
[2020-05-26] MEDS ORDERED: Albuterol/Ipratropium 3.0-0.5 MG/3 ML Neb Soln NEB PRN (13:52)
[2020-05-26] MEDS ORDERED: Docusate Sodium 100 MG Cap PO PRN (13:52)
[2020-05-26] MEDS ORDERED: Ondansetron 4 MG Tab.DIS PO PRN (13:52)
[2020-05-26] MEDS ORDERED: Acetaminophen 325 MG Tab PO PRN (13:52)
[2020-05-26] MEDS ORDERED: oxyCODONE 5 MG Tab PO PRN (13:52)
[2020-05-26] MEDS ORDERED: Albuterol 6.7 GM Inhaler INH PRN (13:59)
[2020-05-26] MEDS ORDERED: traMADol 50 MG Tab PO PRN (13:59)
[2020-05-26] MEDS: Sodium Chloride 0.9% 1,000 ML IV SCH ×2 (14:19→21:27)
[2020-05-26] MEDS: Apixaban 5 MG Tab PO SCH ×2 (14:21→20:26)
--- NOTE | 2020-05-26 16:36 | HP ---
CHIEF COMPLAINT: Shortness of breath. HISTORY OF PRESENT ILLNESS: The patient is a 45-year-old female with past medical history of lupus erythematosus, obesity, asthma, hypertension, was admitted through the emergency room because the patient for the last 2 weeks has been complaining of shortness of breath accompanied by pleuritic chest pain with deep inspiration and this has gotten worse for the last couple of days and she was seen in the emergency room today and she had some workup done which showed pulmonary embolism, and because of this, she was then admitted for further management. PAST MEDICAL HISTORY: Remarkable for obesity, asthma, hypertension, and systemic lupus erythematosus. FAMILY HISTORY: Noncontributory. SOCIAL HISTORY: The patient is a nonsmoker, nonalcohol drinker. REVIEW OF SYSTEMS: The patient denies any fever or chills, syncope, abdominal pain, or any bleeding tendencies. HOME MEDICATIONS: Hydroxychloroquine, lisinopril, atenolol, tramadol, meloxicam. ALLERGIES: Sulfa. PHYSICAL EXAMINATION: General: The patient is alert and oriented, in mild to moderate respiratory distress. Vital Signs: Blood pressure is 156/91, pulse of 102, respiration of 27, temperature of 97, saturation is 97% on room air. SHEENT: Normocephalic. There are pink palpebral conjunctivae. Sclerae anicteric. No JVD. No lymphadenopathy. Heart: Regular, slightly tachycardic. No gallops. No rubs. Lungs: Have diminished breath sounds on both bases, but no crackles, no wheezing. Abdomen: Morbidly obese, otherwise soft, nontender. Bowel sounds positive. Extremities: Negative for any pedal edema. No calf tenderness. LABORATORY DATA: CBC: WBC is 2.2, hemoglobin is 11.3, hematocrit is 33.9, platelet is 119. Comp panel: Potassium is 3, BUN is 21, creatinine is 0.72, glucose is 118, calcium 8.1. The rest of the panel unremarkable. Troponin is less than 0.017. D-dimer is more than 5000. COVID is negative. CAT scan of the chest showed pulmonary embolism on the right pulmonary arteries and right middle and lower lobe peripheral pleural-based density. ADMITTING DIAGNOSES: 1. Acute pulmonary embolism. 2. Hypokalemia. 3. Obesity. 4. Hypertension. 5. Systemic lupus erythematosus. TREATMENT PLAN: The patient was started on heparin drip in the emergency room. I am going to put her on apixaban 5 mg twice a day and we will resume her home medication and the rest of the management as necessary, and the patient is going to be a full code. [facility] /[id number]
[2020-05-26] MEDS: Hydroxychloroquine 200 MG Tab PO SCH (20:23)
[2020-05-26] MEDS: Topiramate 100 MG Tab PO SCH (20:23)
[2020-05-26] MEDS ORDERED: Carbidopa/Levodopa 25-100 MG Tab PO SCH (21:00)
[2020-05-26] MEDS ORDERED: Rosuvastatin 10 MG Tab PO SCH (21:00)
[2020-05-27] MEDS: Sodium Chloride 0.9% 1,000 ML IV SCH ×2 (05:19→13:34)
[2020-05-27 07:02] LABS: ANION GAP 14.2 mEq/L (7-13); CHLORIDE,CL 109 mmol/L (98-107); SODIUM,NA 142 mmol/L (136-145)
[2020-05-27] MEDS: Topiramate 100 MG Tab PO SCH (08:01)
[2020-05-27] MEDS: Apixaban 5 MG Tab PO SCH (08:03)
[2020-05-27] MEDS: Hydroxychloroquine 200 MG Tab PO SCH (08:03)
[2020-05-27] MEDS ORDERED: Potassium Chloride 10 MEQ Tab.ER PO ONE (08:26)
[2020-05-27] MEDS ORDERED: Atenolol 25 MG Tab PO SCH (09:00)
[2020-05-27] MEDS ORDERED: Atenolol 50 MG Tab PO SCH (09:00)
[2020-05-27] MEDS ORDERED: Lisinopril 20 MG Tab PO SCH ×2 (09:00)
[2020-05-27] MEDS ORDERED: Cholecalciferol (Vitamin D3) 25 MCG Tab PO SCH (09:00)
[2020-05-27] MEDS ORDERED: Non-Formulary Medication 1 Each (Cholecalciferol (Vitamin D3) [Vitamin D3] 1,000 UNIT) PO SCH (09:00)
--- NOTE | 2020-05-27 10:36 | US ---
PROCEDURE INFORMATION: Exam: US Duplex Lower Extremity Veins, Bilateral Exam date and time: 05/26/2020 3:18 PM Age: 45 years old Clinical indication: Condition or disease; Other: Pe; Additional info: Has pe, checking for dvt TECHNIQUE: Imaging protocol: Real-time duplex ultrasound of the extremities with 2-D donovan scale, color Doppler flow and spectral waveform analysis with image documentation. Complete exam focused on the bilateral lower extremity veins. COMPARISON: No relevant prior studies available. FINDINGS: Right deep veins: Unremarkable. The common femoral, femoral, proximal profunda femoral and popliteal veins are patent without thrombus. Normal Doppler waveforms. Normal compressibility and/or augmentation response. Right superficial veins: Saphenofemoral junction is patent without thrombus. Left deep veins: Unremarkable. The common femoral, femoral, proximal profunda femoral and popliteal veins are patent without thrombus. Normal Doppler waveforms. Normal compressibility and/or augmentation response. Left superficial veins: Saphenofemoral junction is patent without thrombus. Soft tissues: Unremarkable. IMPRESSION: 1. No evidence of left deep vein thrombosis. 2. No evidence of right deep vein thrombosis.
--- NOTE | 2020-05-27 11:33 | PN ---
DATE: 05/27/2020 SUBJECTIVE: The patient had ultrasound of both lower extremities yesterday. Official report is still pending, but the patient mentioned that she is still complaining of some shortness of breath and some pleuritic chest pain with deep inspiration, but she denies any syncope. Her telemetry remained in sinus rhythm with no significant arrhythmia and she denies any fever, chills, or any other complaints. LABORATORY DATA: Lab workup this morning, CBC; WBC is 3, hemoglobin is 10.2, hematocrit is 31.3, platelets 151. Chem-6: Potassium is 3.2, BUN is 22, glucose is 124, calcium is 8. The rest of the panel unremarkable. OBJECTIVE: Vital Signs: Blood pressure is 136/83, pulse 87, respirations 22, temperature of 98.1, and saturation is 98% on room air. Heart: Regular rate and rhythm. Normal S1 and S2. No gallops. No rubs. Telemetry is sinus rhythm. No significant arrhythmia. Lungs: Clear. No crackles. No wheezing. Abdomen: Morbidly obese, soft, nontender. Extremities: Negative for any significant pedal edema. No calf tenderness. MEDICATIONS: Reviewed. PLAN: We will continue with her present management and continue with apixaban. We will also give her potassium chloride 40 mEq p.o. x1 today, and we will recheck chem-6 in a.m. [facility] /[id number]
[2020-05-27] MEDS ORDERED: LORazepam 1 MG Tab PO ONE (18:57)
[2020-05-27] MEDS ORDERED: Furosemide 40 MG/4 ML VIAL IVPUSH STA (19:28)
[2020-05-27 20:19] LABS: BASE EXCESS ARTERIAL -8 mmol/L ((-2)-(+3)); BICARBONATE,ARTERIAL 16.7 mmol/L (22-26); O2 DELIVERY DEVICE BIPAP; PCO2 ARTERIAL 32 mmHg (35-45); PO2 ARTERIAL 416 mmHg (70-100)
[2020-05-27 20:22] LABS: O2 SATURATION ARTERIAL 101 % (95-100)
[2020-05-27 21:12] VITALS: BP 144/94; PULSE 102
--- NOTE | 2020-05-29 13:11 | PCM.DCSUM1 ---
Discharge Summary - Hospital Course Free Text/Narrative:: Antonieta is 45-year-old patient admitted with shortness of breath. She was found to have multiple PE. Her past medical history significant for obesity, ED, asthma, hypertension. She received her session to [facility]. Patient went into severe respiratory distress. O2 sat decreased to mid 70. However, due to increased. She was switched to nonrebreather and subsequently BiPAP with no improvement. Patient was transferred to higher level of care for further management. 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 - Discharge Data Discharge Date: 05/27/20 Discharge Disposition: DC/Tfer to Acute Hospital 02 Condition: Serious - Referral to Home Health Primary Care Physician: PCP None - Discharge Plan *PRESCRIPTION DRUG MONITORING PROGRAM REVIEWED*: Not Applicable *COPY OF PRESCRIPTION DRUG MONITORING REPORT IN PATIENT YAS: Not Applicable Home Medications: Home Meds Hydroxychloroquine Sulfate [Plaquenil] 200 mg PO BID 08/30/15 [History] traMADol [Ultram] 100 mg PO TID PRN 08/30/15 [History] Albuterol [Take Home: Albuterol 18 GM, 1 INH Pack] 2 puff INH TID PRN 05/26/20 [History] Carbidopa/Levodopa [Carbidopa-Levodopa 25-100] 1 tab PO BEDTIME 05/26/20 [History] Cholecalciferol (Vitamin D3) [Vitamin D3] 50 mcg PO DAILY 05/26/20 [History] Ibuprofen 800 mg PO Q6H PRN 05/26/20 [History] Rosuvastatin Calcium 10 mg PO BEDTIME 05/26/20 [History] Topiramate 100 mg PO BID 05/26/20 [History] atenoloL [Atenolol] 100 mg PO DAILY 05/26/20 [History] lisinopriL [Lisinopril] 40 mg PO DAILY 05/26/20 [History] Forms: ED Department Discharge Referrals: Marilia Johns NP [Ordering Only Provider] - - Discharge Summary/Plan Comment DC Time >30 min.: Yes - General Info Date of Service: 05/27/20 Functional Status: Reports: Pain Controlled - Review of Systems General: Reports: No Symptoms HEENT: Reports: No Symptoms Pulmonary: Reports: No Symptoms Cardiovascular: Reports: No Symptoms Gastrointestinal: Reports: No Symptoms Genitourinary: Reports: No Symptoms Musculoskeletal: Reports: No Symptoms Skin: Reports: No Symptoms Neurological: Reports: No Symptoms Psychiatric: Reports: No Symptoms - Patient Data Vitals - Most Recent: Last Vital Signs Temp 100.4 F 05/27/20 20:00 Pulse 102 H 05/27/20 20:00 Resp 40 H 05/27/20 20:00 BP 144/94 H 05/27/20 20:00 Pulse Ox 72 L 05/27/20 20:00 Weight - Most Recent: 312 lb Med Orders - Current: Current Medications Discontinued Medications Acetaminophen (Tylenol) 650 mg PO Q4H PRN PRN Reason: Pain (Mild 1-3)/fever Albuterol (Proventil Hfa) 0 gm INH TIDRT PRN PRN Reason: Shortness of Breath Last Admin: 05/27/20 19:32 Dose: 6.7 g Documented by: Albuterol/Ipratropium (Duoneb 3.0-0.5 Mg/3 Ml) 3 ml NEB ONETIME ONE Stop: 05/26/20 09:02 Last Admin: 05/26/20 09:24 Dose: 3 ml Documented by: Albuterol/Ipratropium (Duoneb 3.0-0.5 Mg/3 Ml) 3 ml NEB Q4HRRT PRN PRN Reason: shortness of breath/wheezing Last Admin: 05/27/20 19:32 Dose: 3 ml Documented by: Apixaban (Eliquis) 5 mg PO BID [facility] Last Admin: 05/27/20 08:03 Dose: 5 mg Documented by: Atenolol (Tenormin) 100 mg PO DAILY [facility] Last Admin: 05/27/20 08:01 Dose: 100 mg Documented by: Carbidopa/Levodopa (Sinemet 25-100 Mg) 1 tab PO BEDTIME [facility] Last Admin: 05/26/20 20:26 Dose: 1 tab Documented by: Cholecalciferol (Vitamin D3) 50 mcg PO DAILY [facility] Last Admin: 05/27/20 08:03 Dose: 50 mcg Documented by: Docusate Sodium (Colace) 100 mg PO BID PRN PRN Reason: Constipation Furosemide (Lasix) 40 mg IVPUSH NOW STA Stop: 05/27/20 19:29 Last Admin: 05/27/20 19:32 Dose: 40 mg Documented by: Heparin Sodium (Porcine) (Heparin Sodium) 5,000 units IVPUSH .BOLUS ONE Stop: 05/26/20 12:34 Last Admin: 05/26/20 12:40 Dose: 5,000 units Documented by: Hydroxychloroquine Sulfate (Plaquenil) 200 mg PO BID DESIREE Last Admin: 05/27/20 08:03 Dose: 200 mg Documented by: Sodium Chloride (Normal Saline) 1,000 mls @ 999 mls/hr IV .BOLUS ONE Stop: 05/26/20 10:53 Last Admin: 05/26/20 09:59 Dose: 999 mls/hr Documented by: Magnesium Sulfate (Magnesium Sulfate In Water Premix) 4 gm in 100 mls @ 300 m ls/hr IV ONETIME ONE Stop: 05/26/20 10:13 Last Admin: 05/26/20 11:08 Dose: 300 mls/hr Documented by: Heparin Sodium/Sodium Chloride (Heparin 25,000 Units In 1/2 Ns 500 Ml) 25,000 units in 500 mls @ 50.948 mls/hr IV TITRATE DESIREE; Protocol Last Admin: 05/26/20 12:40 Dose: 18.3 units/kg/hr, 51.797 mls/hr Documented by: Sodium Chloride (Normal Saline) 1,000 mls @ 125 mls/hr IV ASDIRECTED [facility] Last Admin: 05/27/20 13:34 Dose: 125 mls/hr Documented by: Iopamidol (Isovue-370 (76%)) 100 ml IVPUSH ONETIME ONE Stop: 05/26/20 09:52 Last Admin: 05/26/20 12:09 Dose: 83 ml Documented by: Lisinopril (Prinivil) 40 mg PO DAILY [facility] Last Admin: 05/27/20 08:03 Dose: 40 mg Documented by: Lorazepam (Ativan) 1 mg PO ONETIME ONE Stop: 05/27/20 18:58 Last Admin: 05/27/20 19:05 Dose: 1 mg Documented by: Methylprednisolone Sodium Succinate (Solu-Medrol) 125 mg IVPUSH ONETIME ONE Stop: 05/26/20 09:02 Last Admin: 05/26/20 09:25 Dose: 125 mg Documented by: Ondansetron HCl (Zofran Odt) 4 mg PO Q4H PRN PRN Reason: nausea, able to take PO Oxycodone HCl (Oxycodone) 5 mg PO Q4H PRN PRN Reason: Pain (moderate 4-6) Potassium Chloride (Klor-Con 10) 40 meq PO ONETIME ONE Stop: 05/26/20 09:47 Last Admin: 05/26/20 09:53 Dose: 40 meq Documented by: Potassium Chloride (Klor-Con 10) 40 meq PO ONETIME ONE Stop: 05/27/20 08:27 Last Admin: 05/27/20 09:43 Dose: 40 meq Documented by: Rosuvastatin Calcium (Crestor) 10 mg PO BEDTIME [facility] Last Admin: 05/26/20 20:23 Dose: 10 mg Documented by: Sodium Chloride (Saline Flush) 10 ml FLUSH ASDIRECTED PRN PRN Reason: Keep Vein Open Sodium Chloride (Saline Flush) 10 ml FLUSH ASDIRECTED PRN PRN Reason: Keep Vein Open Topiramate (Topamax) 100 mg PO BID [facility] Last Admin: 05/27/20 08:01 Dose: 100 mg Documented by: Tramadol HCl (Ultram) 100 mg PO TID PRN PRN Reason: Pain - Exam General: Reports: Alert, Oriented HEENT: Reports: Pupils Equal, Pupils Reactive, EOMI, Mucous Membr. Moist/[place] Neck: Reports: Supple Lungs: Reports: Clear to Auscultation, Normal Respiratory Effort Cardiovascular: Reports: Regular Rate, Regular Rhythm GI/Abdominal Exam: Normal Bowel Sounds, Soft, Non-Tender, No Organomegaly, No Distention, No Abnormal Bruit, No Mass, Pelvis Stable (Female) Exam: Normal External Exam, Normal Speculum Exam, Normal Bimanual Exam Rectal (Female) Exam: Normal Exam, Normal Rectal Tone Back Exam: Reports: Normal Inspection, Full Range of Motion Extremities: Normal Inspection, Normal Range of Motion, Non-Tender, No Pedal Edema, Normal Capillary Refill Skin: Reports: Warm, Dry, Intact Wound/Incisions: Reports: Healing Well Neurological: Reports: No New Focal Deficit Psy/Mental Status: Reports: Alert, Normal Affect, Normal Mood
== END 2020-05-27 20:53 | DRG 134 ==
LOC: DL.ED 08:38 → DL.MS 13:02 → DL.ED 13:04
PROVIDERS: ADMIT Internal Medicine; ATTEND Internal Medicine
DX: I26.99 Other pulmonary embolism without acute cor pulmonale (principal); E87.6 Hypokalemia; E66.9 Obesity, unspecified; I10 Essential (primary) hypertension; M32.9 Systemic lupus erythematosus, unspecified; E78.00 Pure hypercholesterolemia, unspecified; H54.7 Unspecified visual loss; M54.9 Dorsalgia, unspecified; Z20.822 Contact with and (suspected) exposure to COVID-19; G89.29 Other chronic pain; Z28.82 Immunization not carried out because of caregiver refusal; Z88.2 Allergy status to sulfonamides; Z90.710 Acquired absence of both cervix and uterus; Z79.899 Other long term (current) drug therapy
CPT/HCPCS: 36415; 36600; 71045; 71260; 80048; 80053; 82803; 83735; 84484; 84703; 85025; 85379; 85610; 85730; 86140; 87081; 87430; 93005; 93010; 93970; 94640; 96365; 96367; 96375; 99285; 99285-25; A9270-GY; J1644; J1940; J2930; J3475; J7030; J7620-GY; Q9967; U0002

== ENCOUNTER 2020-06-29 09:36 | Emergency (ER) | payer BC, OTHER ==
[2020-06-29 09:47] VITALS: BP 128/107; PULSE 83
[2020-06-29 10:06] LABS: ANION GAP 15.6 mEq/L (7-13); CHLORIDE,CL 103 mmol/L (98-107); SODIUM,NA 140 mmol/L (136-145)
[2020-06-29] MEDS ORDERED: Potassium Chloride 10 MEQ in Premix Bag 1 BAG IV ONE (10:09)
[2020-06-29] MEDS ORDERED: Lidocaine 1% 30 ML SDV INJECT ONE (10:10)
--- NOTE | 2020-06-29 10:10 | CR ---
PROCEDURE INFORMATION: Exam: XR Left Foot Exam date and time: 06/29/2020 9:49 AM Age: 45 years old Clinical indication: Pain; Foot; Left; Additional info: Left foot pain, no injury TECHNIQUE: Imaging protocol: XR Left foot. Views: 3 or more views. COMPARISON: No relevant prior studies available. 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 Soft tissues: Normal. 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
[2020-06-29] MEDS ORDERED: Potassium Chloride 10 MEQ Tab.ER PO ONE (10:11)
[2020-06-29] MEDS ORDERED: Lidocaine 5% Oint 35.44 GM Tube TOP ONE (10:13)
[2020-06-29] MEDS ORDERED: Magnesium Sulfate/Water 2 GM/50 ML BAG IV SCH (10:15)
--- NOTE | 2020-06-29 11:24 | EDM.PDOC ---
Scribed by Mariela Finnegan 06/29/20 1018 for Shantelle Mcclain MD ED HPI GENERAL MEDICAL PROBLEM - General Chief Complaint: Lower Extremity Injury/Pain Stated Complaint: AMBULANCE Time Seen by Provider: 06/29/20 09:37 Source of Information: Reports: Patient, EMS, EMS Notes Reviewed, RN, RN Notes Reviewed History Limitations: Reports: No Limitations - History of Present Illness INITIAL COMMENTS - FREE TEXT/NARRATIVE: Patient arrives to ED by [facility] with left foot pain, no injury. This has been present for several days, worse at night. It is very sensitive to touch. It feels better when it is wrapped or in a shoe Denies redness or swelling. She was discharged from the hospital about a week ago, after being admitted for 2 weeks with pulmonary embolisms. Denies fevers or chills. Onset: Gradual Duration: Getting Worse Location: Reports: Lower Extremity, Left Quality: Reports: Ache Severity: Severe Worsens with: Reports: None Associated Symptoms: Reports: No Other Symptoms - Related Data Allergies Allergy/AdvReac Type Severity Reaction Status Date / Time atorvastatin Allergy Muscle Verified 06/05/20 14:32 Aches Sulfa (Sulfonamide Allergy Swollen Verified 06/05/20 14:32 Antibiotics) Eyes Home Meds: Home Meds Hydroxychloroquine Sulfate [Plaquenil] 200 mg PO BID 08/30/15 [History] traMADol [Ultram] 100 mg PO TID PRN 08/30/15 [History] Albuterol [Take Home: Albuterol 18 GM, 1 INH Pack] 2 puff INH TID PRN 05/26/20 [History] Carbidopa/Levodopa [Carbidopa-Levodopa 25-100] 1 tab PO BEDTIME 05/26/20 [History] Cholecalciferol (Vitamin D3) [Vitamin D3] 50 mcg PO DAILY 05/26/20 [History] Rosuvastatin Calcium 10 mg PO BEDTIME 05/26/20 [History] Topiramate 100 mg PO BID 05/26/20 [History] atenoloL [Atenolol] 100 mg PO DAILY 05/26/20 [History] lisinopriL [Lisinopril] 40 mg PO DAILY 05/26/20 [History] Acetaminophen 500 mg PO Q4HR PRN 06/05/20 [History] Apixaban [Eliquis] 10 mg PO DAILY 06/05/20 [History] Apixaban [Eliquis] 5 mg PO BID 06/29/20 [History] Past Medical History HEENT History: Reports: Impaired Vision Cardiovascular History: Reports: High Cholesterol, Hypertension Respiratory History: Reports: Asthma Gastrointestinal History: Reports: None Genitourinary History: Reports: None 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: Musculoskeletal History: Reports: Back Pain, Chronic Neurological History: Reports: Migraines Psychiatric History: Reports: Anxiety Endocrine/Metabolic History: Reports: Obesity/BMI 30+ Hematologic History: Reports: None Immunologic History: Reports: SLE Other Immunologic History: lupus Oncologic (Cancer) History: Reports: None Dermatologic History: Reports: None - Infectious Disease History Infectious Disease History: Reports: None - Past Surgical History Head Surgeries/Procedures: Reports: None HEENT Surgical History: Reports: None Cardiovascular Surgical History: Reports: None Female Surgical History: Reports: Hysterectomy Neurological Surgical History: Reports: None Musculoskeletal Surgical History: Reports: Other (See Below) Other Musculoskeletal Surgeries/Procedures:: hip surgery Social & Family History - Family History Family Medical History: No Pertinent Family History - Caffeine Use Caffeine Use: Reports: Coffee - Sexual History Sexual History: Reports: None - Living Situation & Occupation Living situation: Reports: Single Occupation: Employed Review of Systems - Review of Systems Review Of Systems: Comprehensive ROS is negative, except as noted in HPI. ED EXAM, GENERAL - Physical Exam Exam: See Below Exam Limited By: No Limitations General Appearance: Alert, WD/WN, No Apparent Distress, Obese Eye Exam: Bilateral Eye: EOMI, Normal Inspection, PERRL Ears: Normal External Exam, Normal Canal, Hearing Grossly Normal, Normal TMs Nose: Normal Inspection, Normal Mucosa, No Blood Throat/Mouth: Normal Inspection, Normal Lips, Normal Teeth, Normal Gums, Normal Oropharynx, Normal Voice, No Airway Compromise Head: Atraumatic, Normocephalic Neck: Normal Inspection, Supple, Non-Tender, Full Range of Motion Respiratory/Chest: No Respiratory Distress, Lungs Clear, Normal Breath Sounds, No Accessory Muscle Use, Chest Non-Tender Cardiovascular: Normal Peripheral Pulses, Regular Rate, Rhythm, No Edema, No Gallop, No JVD, No Murmur, No Rub GI/Abdominal: Normal Bowel Sounds, Soft, Non-Tender, No Organomegaly, No Distention, No Abnormal Bruit, No Mass (Female) Exam: Deferred Rectal (Female) Exam: Deferred Back Exam: Normal Inspection, Full Range of Motion, NT Extremities: Other (left foot tenderness, generalized. No redness or swelling. ) Neurological: Alert, Oriented, CN II-XII Intact, Normal Cognition, Normal Gait, Normal Reflexes, No Motor/Sensory Deficits Psychiatric: Normal Affect, Normal Mood Skin Exam: Warm, Dry, Intact, Normal Color, No Rash Course - Vital Signs Last Recorded V/S: Last Vital Signs Temp 97.8 F 06/29/20 09:46 Pulse 83 06/29/20 09:46 Resp 23 H 06/29/20 09:46 BP 128/107 H 06/29/20 09:46 Pulse Ox 97 06/29/20 09:46 - Orders/Labs/Meds Orders: Active Orders 24 hr Category Date Time Status Magnesium Sulfate/Water [Magnesium Sulfate in Water 2 Med 06/29/20 10:15 Active GM/50 ML] 2 gm in 50 ml IV ONETIME Medication Orders Magnesium Sulfate (Magnesium Sulfate In Water 2 Gm/50 Ml) 2 gm in 50 mls @ 50 mls/hr IV ONETIME DESIREE Labs: Laboratory Tests 06/29/20 06/29/20 Range/Units 09:42 09:42 WBC 3.7 L (5.0-10.0) 10^3/uL RBC 4.06 L (4.2-5.4) 10^6/uL Hgb 10.6 L (12.0-16.0) g/dL Hct 32.6 L (37.0-47.0) % MCV 80.3 (80-100) fL MCH 26.1 L (27.0-34.0) pg MCHC 32.5 L (33.0-35.0) g/dL Plt Count 152 (150-450) 10^3/uL Neut % (Auto) 83.0 H (42.2-75.2) % Lymph % (Auto) 12.1 L (20.5-50.1) % [place] % (Auto) 3.8 (2-8) % Eos % (Auto) 0.8 L (1.0-3.0) % Baso % (Auto) 0.3 (0.0-1.0) % Sodium 140 (136-145) mmol/L Potassium 2.6 L (3.5-5.1) mmol/L Chloride 103 (98-107) mmol/L Carbon Dioxide 24 (21-32) mmol/L Anion Gap 15.6 H (7-13) mEq/L BUN 11 (7-18) mg/dL Creatinine 0.70 (0.55-1.02) mg/dL Est Cr Clr Drug Dosing 85.72 mL/min Estimated GFR (MDRD) > 60 BUN/Creatinine Ratio 15.7 (No establ ref range) Glucose 111 H (74-99) mg/dL Uric Acid 3.4 (2.6-6.0) mg/dL Calcium 8.3 L (8.5-10.1) mg/dL Magnesium 1.5 L (1.8-2.4) mg/dL Total Bilirubin 0.4 (0.2-1.0) mg/dL AST 13 L (15-37) U/L ALT 15 (14-59) U/L Alkaline Phosphatase 96 (46-116) U/L C-Reactive Protein 1.7 H (0.0-0.9) mg/dL Total Protein 6.8 (6.4-8.2) g/dL Albumin 3.0 L (3.4-5.0) g/dL Globulin 3.8 Albumin/Globulin Ratio 0.79 Meds: Medications Generic Name Dose Route Start Last Admin Trade Name Freq PRN Reason Stop Dose Admin Magnesium Sulfate 2 gm in 50 mls @ 50 mls/hr 06/29/20 10:15 Magnesium Sulfate In Water 2 Gm/50 Ml IV ONETIME DESIREE Discontinued Medications Generic Name Dose Route Start Last Admin Trade Name Freq PRN Reason Stop Dose Admin Potassium Chloride 10 meq/ 100 mls @ 100 mls/hr 06/29/20 10:09 06/29/20 10:27 Premix IV 06/29/20 11:08 100 mls/hr ONETIME ONE Administration Lidocaine HCl 30 ml 06/29/20 10:10 06/29/20 10:28 Xylocaine-Mpf 1% INJECT 06/29/20 10:11 30 ml ONETIME ONE Administration Lidocaine HCl 15 gm 06/29/20 10:13 06/29/20 10:28 Lidocaine 5% TOP 06/29/20 10:14 15 gm ONETIME ONE Administration Potassium Chloride 60 meq 06/29/20 10:11 06/29/20 10:29 Klor-Con 10 PO 06/29/20 10:12 60 meq ONETIME ONE Administration - Radiology Interpretation Free Text/Narrative:: [facility] [place] [facility] Final Radiology Report Call: [phone] assistance Online chat: [email or web address] Name: SHIRLEY TERAN Age: 45Years F Date: 06/29/2020 SSN: -- : [id number] Study: CR FOOT COMP MIN 3V LT Requesting Physician: SHANTELLE MCCLAIN Images: 3 Addl Studies: Provided Clinical History: Left foot pain, no injury Contrast: Contrast Medium: Contrast Amount: Contrast Method: CONFIDENTIALITY STATEMENT This report is intended only for use by the referring physician, and only in accordance with law. If you received this in error, call [phone]. Page 1 of 1 PROCEDURE INFORMATION: Exam: XR Left Foot Exam date and time: 06/29/2020 9:49 AM Age: 45 years old Clinical indication: Pain; Foot; Left; Additional info: Left foot pain, no injury TECHNIQUE: Imaging protocol: XR Left foot. Views: 3 or more views. COMPARISON: No relevant prior studies available. 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 Soft tissues: Normal. 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 Thank you for allowing us to participate in the care of your patient. Dictated and Authenticated by: Sindy Maya MD 06/29/2020 10:10 AM Central Time ([place] & [place]) Departure - Departure Time of Disposition: 12:00 Disposition: Home, Self-Care 01 Condition: Good Clinical Impression: Left foot pain, Hypokalemia, Hypomagnesemia, Arthritis of left foot - Discharge Information *PRESCRIPTION DRUG MONITORING PROGRAM REVIEWED*: No *COPY OF PRESCRIPTION DRUG MONITORING REPORT IN PATIENT YAS: No Instructions: Foot Pain, Hypokalemia, Hypomagnesemia Forms: ED Department Discharge Additional Instructions: Rx: Potassium Chloride 20mEq *Take with meals. Use an over the counter Magnesium Supplement 500mg once daily. Use an [place] wrap or compression stocking to left foot if needed for comfort. Follow up with podiatry, Dr. Jose Trevino for further evaluation of your foot pain. Call [phone] to schedule an appointment. Sepsis Event Note (ED) - Focused Exam Vital Signs: Vital Signs Temp Pulse Resp BP Pulse Ox 06/29/20 09:46 97.8 F 83 23 H 128/107 H 97 - My Orders Last 24 Hours: My Active Orders 06/29/20 10:15 Magnesium Sulfate/Water [Magnesium Sulfate in Water 2 GM/50 ML] 2 gm in 50 ml IV ONETIME - Assessment/Plan Last 24 Hours: My Active Orders 06/29/20 10:15 Magnesium Sulfate/Water [Magnesium Sulfate in Water 2 GM/50 ML] 2 gm in 50 ml IV ONETIME I have read and agree with the documentation that has been completed regarding this visit. By signing this record, I attest that the documentation was completed in my physical presence and is an accurate record of the encounter.
== END 2020-06-29 12:30 | disposition home or self-care (01) ==
LOC: DL.ED 09:36
DX: M19.072 Primary osteoarthritis, left ankle and foot (principal); E87.6 Hypokalemia; E83.42 Hypomagnesemia; E78.00 Pure hypercholesterolemia, unspecified; I10 Essential (primary) hypertension; J45.909 Unspecified asthma, uncomplicated; E66.9 Obesity, unspecified; Z68.43 Body mass index [BMI] 50.0-59.9, adult; Z88.8 Allergy status to other drugs, medicaments and biological substances; Z88.2 Allergy status to sulfonamides
CPT/HCPCS: 36415; 73630; 80053; 83735; 84550; 85025; 86140; 96365; 96368; 99284; A9270; J3475; J3480

== ENCOUNTER 2020-07-19 09:14 | Inpatient (IN) | payer BC, OTHER ==
[2020-07-19 10:11] LABS: ANION GAP 19.6 mEq/L (7-13); CHLORIDE,CL 100 mmol/L (98-107); SODIUM,NA 137 mmol/L (136-145)
[2020-07-19] MEDS ORDERED: Piperacillin/Tazobactam 3.375 GM in Sodium Chloride 0.9% 100 ML IV ONE (10:29)
[2020-07-19] MEDS ORDERED: Iopamidol 755 Mg/ML 100 ML Bottle IVPUSH ONE (11:06)
[2020-07-19] MEDS ORDERED: Sodium Chloride 0.9% 1,000 ML IV ONE (11:06)
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
[2020-07-19] MEDS ORDERED: Non-Formulary Medication 1 Each (Diclofenac Sodium [Diclofenac Sodium] 1 APPLIC) TOP SCH (13:30)
[2020-07-19] MEDS ORDERED: Acetaminophen 500 MG Tab PO PRN (13:30)
[2020-07-19] MEDS ORDERED: traMADol 50 MG Tab PO PRN (13:30)
[2020-07-19] MEDS: Potassium Chloride 10 MEQ in Premix Bag 1 BAG IV SCH ×6 (13:59→20:06)
[2020-07-19] MEDS ORDERED: Potassium Chloride 10 MEQ Tab.ER PO SCH (14:00)
--- NOTE | 2020-07-19 14:02 | PCM.HP ---
H&P History of Present Illness - General Date of Service: 07/19/20 Admit Problem/Dx: Admission Diagnosis/Problem Admission Diagnosis/Problem Sepsis Source of Information: Patient History Limitations: Reports: No Limitations - History of Present Illness Initial Comments - Free Text/Narative: Elizabeth Fabian a 45-year-old female with medical history of hypertension, asthma, severe osteonecrosis of the left hip status post previous left total hip arthroplasty and questionable history of lupus, recent acute pulmonary embolism on Eliquis who presented with complaints of right groin swelling, pain and redness. Patient reports that about a week ago she developed a boil in her right groin which she ruptured and drained a purulent material. About the past few days she developed redness and severe pain in the area. There is also an area of swelling left over from the previous drainage. Patient presents to the ER with complaints. She was found to have tachycardia of 140, tachypnea 22, blood pressure 144/99, temperature of 98.9, WBC of 16.0, hemoglobin of 10.8, lactic acid of 2.6, potassium of 2.6, anion gap of 19.6, bicarb of 20. UA was positive for UTI. Bilirubin was 1.3. Right Groin Pain Score (Numeric/FACES): 5 - Related Data Allergies/Adverse Reactions: Allergies Allergy/AdvReac Type Severity Reaction Status Date / Time atorvastatin Allergy Muscle Verified 07/19/20 09:36 Aches Sulfa (Sulfonamide Allergy Swollen Verified 07/19/20 09:36 Antibiotics) Eyes Home Medications: Home Meds Hydroxychloroquine Sulfate [Plaquenil] 200 mg PO BID 08/30/15 [History] traMADol [Ultram] 100 mg PO TID PRN 08/30/15 [History] Carbidopa/Levodopa [Carbidopa-Levodopa 25-100] 1 tab PO BEDTIME PRN MDD restless legs 05/26/20 [History] atenoloL [Atenolol] 100 mg PO DAILY 05/26/20 [History] lisinopriL [Lisinopril] 40 mg PO DAILY 05/26/20 [History] Acetaminophen 500 mg PO Q4HR PRN 06/05/20 [History] Apixaban [Eliquis] 5 mg PO BID 06/29/20 [History] Diclofenac Sodium 1 applic TOP ASDIRECTED 07/19/20 [History] Ibuprofen 800 mg PO Q12HR 07/19/20 [History] Potassium Chloride [K-Tab ER] 40 meq PO DAILY 07/19/20 [History] Past Medical History HEENT History: Reports: Impaired Vision Cardiovascular History: Reports: High Cholesterol, Hypertension Respiratory History: Reports: Asthma, PE Gastrointestinal History: Reports: None Genitourinary History: Reports: None [employer] WORK[employer] History: Reports: Musculoskeletal History: Reports: Back Pain, Chronic, Other (See Below) Other Musculoskeletal History: 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, does have a brace on Neurological History: Reports: Migraines Psychiatric History: Reports: Anxiety Endocrine/Metabolic History: Reports: Obesity/BMI 30+ Hematologic History: Reports: None Immunologic History: Reports: SLE Other Immunologic History: lupus Oncologic (Cancer) History: Reports: None Dermatologic History: Reports: None - Infectious Disease History Infectious Disease History: Reports: None - Past Surgical History Head Surgeries/Procedures: Reports: None HEENT Surgical History: Reports: None Cardiovascular Surgical History: Reports: None Female Surgical History: Reports: Hysterectomy Neurological Surgical History: Reports: None Musculoskeletal Surgical History: Reports: Other (See Below) Other Musculoskeletal Surgeries/Procedures:: hip surgery Social & Family History - Family History Family Medical History: No Pertinent Family History - Tobacco Use Tobacco Use Status *Q: Never Tobacco User Second Hand Smoke Exposure: No - Caffeine Use Caffeine Use: Reports: None - Recreational Drug Use Recreational Drug Use: No - Sexual History Sexual History: Reports: None - Living Situation & Occupation Living situation: Reports: Single Occupation: Employed H&P Review of Systems - Review of Systems: Review Of Systems: See Below General: Reports: No Symptoms HEENT: Reports: No Symptoms Pulmonary: Reports: No Symptoms Cardiovascular: Reports: No Symptoms Gastrointestinal: Reports: No Symptoms Genitourinary: Reports: Pain, Other (Right groin swelling.) Musculoskeletal: Reports: No Symptoms Skin: Reports: Rash, Erythema Psychiatric: Reports: No Symptoms Neurological: Reports: No Symptoms Hematologic/Lymphatic: Reports: No Symptoms Immunologic: Reports: No Symptoms Exam - Exam Exam: See Below - Vital Signs Vital Signs: Last Vital Signs Temp 98.5 F 07/19/20 09:24 Pulse 140 H 07/19/20 09:24 Resp 22 H 07/19/20 09:24 BP 140/99 H 07/19/20 09:24 Pulse Ox 100 07/19/20 09:24 Weight: 284 lb 9.6 oz - Exam General: Alert, Oriented, 4 HEENT: PERRLA, Hearing Intact, Mucosa Moist & [place], Nares Patent, Normal Nasal Septum, Posterior Pharynx Clear, Conjunctiva Clear, EOMI, EACs Clear, TMs Clear Neck: Supple Lungs: Clear to Auscultation, Normal Respiratory Effort Cardiovascular: Regular Rate, Regular Rhythm GI/Abdominal Exam: Normal Bowel Sounds, Soft, Non-Tender, No Organomegaly, No Distention, No Abnormal Bruit, No Mass, Pelvis Stable (Female) Exam: Other (Right groin swelling, tenderness, erythema) Back Exam: Normal Inspection, Full Range of Motion, NT Extremities: Normal Inspection, Normal Range of Motion, Non-Tender, No Pedal Edema, Normal Capillary Refill Skin: Warm, Rash Neurological: Cranial Nerves Intact, Reflexes Equal Bilateral Neuro Extensive - Mental Status: Alert, Oriented x3, Normal Mood/Affect, Normal Cognition Neuro Extensive - Motor, Sensory, Reflexes: CN II-XII Intact, Normal Gait, Normal Reflexes Psychiatric: Alert, Normal Affect, Normal Mood - Patient Data Lab Results Last 24 hrs: Laboratory Results - last 24 hr 07/19/20 07/19/20 07/19/20 Range/Units 09:40 09:40 09:40 WBC 16.0 H (5.0-10.0) 10^3/uL RBC 4.27 (4.2-5.4) 10^6/uL Hgb 10.8 L (12.0-16.0) g/dL Hct 33.2 L (37.0-47.0) % MCV 77.8 L (80-100) fL MCH 25.3 L (27.0-34.0) pg MCHC 32.5 L (33.0-35.0) g/dL Plt Count 304 D (150-450) 10^3/uL Neut % (Auto) 95.8 H (42.2-75.2) % Lymph % (Auto) 2.6 L (20.5-50.1) % [place] % (Auto) 1.5 L (2-8) % Eos % (Auto) 0.0 L (1.0-3.0) % Baso % (Auto) 0.1 (0.0-1.0) % PT (9.0-12.0) SEC INR (0.9-1.2) D-Dimer, Quantitative (0-400) ng/mL Sodium 137 (136-145) mmol/L Potassium 2.6 L (3.5-5.1) mmol/L Chloride 100 (98-107) mmol/L Carbon Dioxide 20 L (21-32) mmol/L Anion Gap 19.6 H (7-13) mEq/L BUN 18 (7-18) mg/dL Creatinine 0.90 (0.55-1.02) mg/dL Est Cr Clr Drug Dosing 66.67 mL/min Estimated GFR (MDRD) > 60 BUN/Creatinine Ratio 20.0 (No establ ref range) Glucose 126 H (74-99) mg/dL Lactic Acid 2.6 H* (0.4-2.0) mmol/L Calcium 8.6 (8.5-10.1) mg/dL Total Bilirubin 1.3 H (0.2-1.0) mg/dL AST 12 L (15-37) U/L ALT 13 L (14-59) U/L Alkaline Phosphatase 95 (46-116) U/L C-Reactive Protein 41.6 H (0.0-0.9) mg/dL Total Protein 7.3 (6.4-8.2) g/dL Albumin 2.3 L (3.4-5.0) g/dL Globulin 5.0 Albumin/Globulin Ratio 0.46 Urine HCG, Qual SARS-CoV-2 RNA (TAVO) (NEGATIVE) 07/19/20 07/19/20 07/19/20 Range/Units 09:40 10:11 13:18 WBC (5.0-10.0) 10^3/uL RBC (4.2-5.4) 10^6/uL Hgb (12.0-16.0) g/dL Hct (37.0-47.0) % MCV (80-100) fL MCH (27.0-34.0) pg MCHC (33.0-35.0) g/dL Plt Count (150-450) 10^3/uL Neut % (Auto) (42.2-75.2) % Lymph % (Auto) (20.5-50.1) % [place] % (Auto) (2-8) % Eos % (Auto) (1.0-3.0) % Baso % (Auto) (0.0-1.0) % PT 14.7 H D (9.0-12.0) SEC INR 1.6 H (0.9-1.2) D-Dimer, Quantitative 2570 H (0-400) ng/mL Sodium (136-145) mmol/L Potassium (3.5-5.1) mmol/L Chloride (98-107) mmol/L Carbon Dioxide (21-32) mmol/L Anion Gap (7-13) mEq/L BUN (7-18) mg/dL Creatinine (0.55-1.02) mg/dL Est Cr Clr Drug Dosing mL/min Estimated GFR (MDRD) BUN/Creatinine Ratio (No establ ref range) Glucose (74-99) mg/dL Lactic Acid (0.4-2.0) mmol/L Calcium (8.5-10.1) mg/dL Total Bilirubin (0.2-1.0) mg/dL AST (15-37) U/L ALT (14-59) U/L Alkaline Phosphatase (46-116) U/L C-Reactive Protein (0.0-0.9) mg/dL Total Protein (6.4-8.2) g/dL Albumin (3.4-5.0) g/dL Globulin Albumin/Globulin Ratio Urine HCG, Qual Negative SARS-CoV-2 RNA (TAVO) Negative (NEGATIVE) Result Diagrams: 07/19/20 09:40 07/19/20 09:40 *Q Meaningful Use (ADM) - VTE *Q VTE Anticoagulation Contraindications: Alternative TX Request PT Problem List Initiated/Reviewed/Updated: Yes Orders Last 24hrs: Active Orders 24 hr Category Date Time Status Admission Diagnosis [ADT] Stat ADT 07/19/20 12:56 Ordered Patient Status [ADT] Routine ADT 07/19/20 12:56 Active Oxygen Therapy [RC] PRN Care 07/19/20 13:28 Active Up ad Hali [RC] ASDIRECTED Care 07/19/20 13:28 Active VTE/DVT Education [RC] PER UNIT ROUTINE Care 07/19/20 13:28 Active Vital Signs [RC] Q4H Care 07/19/20 13:28 Active CULTURE BLOOD [BC] Stat Lab 07/19/20 09:40 Received CULTURE BLOOD [BC] Stat Lab 07/19/20 10:11 Received LACTIC ACID [CHEM] Routine Lab 07/19/20 13:26 Ordered POTASSIUM,K [CHEM] Routine Lab 07/19/20 21:00 Ordered UA W/MORALES RFLX IF INDICATED [URIN] Stat Lab 07/19/20 13:18 Received Acetaminophen [Tylenol Extra Strength] Med 07/19/20 13:30 Active 500 mg PO Q4H PRN Apixaban [Eliquis] Med 07/19/20 21:00 Active 5 mg PO BID Diclofenac Sodium [Diclofenac Sodium] Med 07/19/20 13:30 Pending 1 applic TOP ASDIRECTED Hydroxychloroquine [Plaquenil] Med 07/19/20 21:00 Active 200 mg PO BID Pharmacy to Dose - Vancomycin Med 07/19/20 13:45 Ordered 1 dose .XX ASDIRECTED Piperacillin/Tazobactam [Zosyn] 3.375 gm Med 07/19/20 17:00 Active Sodium Chloride 0.9% [Normal Saline] 100 ml IV Q6H Potassium Chloride [KCl in Water 10 MEQ/100 ML] 10 meq Med 07/19/20 14:00 Active Premix Bag 1 bag IV Q1H Potassium Chloride [Klor-Con 10] Med 07/19/20 14:00 Active 40 meq PO DAILY atenoloL [Tenormin] Med 07/20/20 09:00 Active 100 mg PO DAILY lisinopriL [Prinivil] Med 07/20/20 09:00 Active 40 mg PO DAILY traMADol [Ultram] Med 07/19/20 13:30 Active 100 mg PO TID PRN Anticoagulation Contraindications VTE [AST] Per Unit Oth 07/19/20 13:28 Ordered Routine Blood Culture x2 Reflex Set [OM.PC] Stat Oth 07/19/20 09:28 Ordered Resuscitation Status Routine Resus Stat 07/19/20 13:28 Ordered Medication Orders Acetaminophen (Tylenol Extra Strength) 500 mg PO Q4H PRN PRN Reason: Pain Apixaban (Eliquis) 5 mg PO BID [facility] Atenolol (Tenormin) 100 mg PO DAILY [facility] Hydroxychloroquine Sulfate (Plaquenil) 200 mg PO BID [facility] Potassium Chloride 10 meq/ (Premix) 100 mls @ 100 mls/hr IV Q1H [facility] Stop: 07/19/20 19:59 Piperacillin Sod/Tazobactam (Sod 3.375 gm/ Sodium Chloride) 100 mls @ 200 mls/hr IV Q6H [facility] Lisinopril (Prinivil) 40 mg PO DAILY [facility] Non-Formulary Medication (Diclofenac Sodium [Diclofenac Sodium]) 1 applic TOP ASDIRECTED [facility] Potassium Chloride (Klor-Con 10) 40 meq PO DAILY [facility] Tramadol HCl (Ultram) 100 mg PO TID PRN PRN Reason: Pain Vancomycin HCl (Pharmacy To Dose - Vancomycin) 1 dose .XX ASDIRECTED [facility] Assessment/Plan Comment:: Sepsis Right groin abscess with cellulitis Lactic acidosis Patient has leukocytosis, lactic acidosis, tachycardia, tachypnea. Ultrasound obtained showed 1.8 x 1.4 x 0.6 cm right inguinal fluid collection suspicious for abscess/hematoma/seroma. Blood cultures pending Start on vancomycin and Zosyn Status post 1 L IV fluid bolus, continue with maintenance IV fluid normal saline 100 cc/h Hypokalemia Potassium of 2.6 Replace Telemetry Recent acute pulmonary embolism Resume home Eliquis Hypertension Resume home hypertensives Lupus erythematosus Resume home Plaquenil Anemia Hemoglobin at baseline DVT prophylaxis: On Eliquis Code status: Full code
[2020-07-19] MEDS ORDERED: Sodium Chloride 0.9% 1,000 ML IV SCH (14:15)
[2020-07-19] MEDS ORDERED: Sodium Chloride 0.9% 10 ML Syringe FLUSH PRN (14:22)
[2020-07-19] MEDS: HYDROmorphone 1 MG/ML Syringe IVPUSH PRN ×2 (14:43→19:23)
[2020-07-19 16:02] VITALS: BP 109/58; PULSE 100
[2020-07-19] MEDS ORDERED: Piperacillin/Tazobactam 3.375 GM in Sodium Chloride 0.9% 100 ML IV SCH (17:00)
--- NOTE | 2020-07-19 17:54 | PCM.DCSUM1 ---
Discharge Summary - Hospital Course Free Text/Narrative:: Elizabeth Fabian a 45-year-old female with medical history of hypertension, asthma, severe osteonecrosis of the left hip status post previous left total hip arthroplasty and questionable history of lupus, recent acute pulmonary embolism on Eliquis who presented with right groin swelling, pain, and redness. She was found to have tachycardia of 140, tachypnea 22, blood pressure 144/99, temperature of 98.9, WBC of 16.0, hemoglobin of 10.8, lactic acid of 2.6, potassium of 2.6, anion gap of 19.6, bicarb of 20. UA was positive for UTI. Bilirubin was 1.3. She had a D-dimer of 2570. CT for PE was negative. Ultrasound showed a 1.8 x 1.4 x 0.6 cm fluid collection in the groin suspicious for abscess/hematoma/seroma. Patient was found to be septic and started on vancomycin and Zosyn. Blood cultures were also obtained. She received potas sium replacement for hypokalemia. Patient was transferred to our hospital for further evaluation and surgery evaluation for abscess incision and drainage given location of abscess, patient's body habitus and being on anticoagulation. Patient will also need infectious disease specialist. Diagnosis: Stroke: No - Discharge Data Discharge Date: 07/19/20 Discharge Disposition: DC/Tfer to Acute Hospital 02 Condition: Good - Referral to Home Health Primary Care Physician: PCP None - Discharge Plan *PRESCRIPTION DRUG MONITORING PROGRAM REVIEWED*: Not Applicable *COPY OF PRESCRIPTION DRUG MONITORING REPORT IN PATIENT YAS: Not Applicable Home Medications: Home Meds Hydroxychloroquine Sulfate [Plaquenil] 200 mg PO BID 08/30/15 [History] traMADol [Ultram] 100 mg PO TID PRN 08/30/15 [History] Carbidopa/Levodopa [Carbidopa-Levodopa 25-100] 1 tab PO BEDTIME PRN MDD restless legs 05/26/20 [History] atenoloL [Atenolol] 100 mg PO DAILY 05/26/20 [History] lisinopriL [Lisinopril] 40 mg PO DAILY 05/26/20 [History] Acetaminophen 500 mg PO Q4HR PRN 06/05/20 [History] Apixaban [Eliquis] 5 mg PO BID 06/29/20 [History] Diclofenac Sodium 1 applic TOP ASDIRECTED 07/19/20 [History] Ibuprofen 800 mg PO Q12HR 07/19/20 [History] Potassium Chloride [K-Tab ER] 40 meq PO DAILY 07/19/20 [History] Forms: ED Department Discharge Referrals: PCP,None [Primary Care Provider] - - Discharge Summary/Plan Comment DC Time >30 min.: Yes - General Info Admission Dx/Problem (Free Text: Admission Diagnosis/Problem Admission Diagnosis/Problem Sepsis Subjective Update: Patient still complaining of pain in her groin. Afebrile. Functional Status: Reports: Pain Controlled - Review of Systems General: Reports: No Symptoms HEENT: Reports: No Symptoms Pulmonary: Reports: No Symptoms Cardiovascular: Reports: No Symptoms Gastrointestinal: Reports: No Symptoms Genitourinary: Reports: Other (Right groin swelling, pain and redness) Musculoskeletal: Reports: No Symptoms Skin: Reports: Rash Neurological: Reports: No Symptoms Psychiatric: Reports: No Symptoms - Patient Data Vitals - Most Recent: Last Vital Signs Temp 98.9 F 07/19/20 13:28 Pulse 100 07/19/20 13:28 Resp 20 07/19/20 13:28 BP 109/58 L 07/19/20 13:28 Pulse Ox 100 07/19/20 13:28 Weight - Most Recent: 274 lb 12.8 oz Lab Results - Last 24 hrs: Laboratory Results - last 24 hr 07/19/20 07/19/20 07/19/20 Range/Units 09:40 09:40 09:40 WBC 16.0 H (5.0-10.0) 10^3/uL RBC 4.27 (4.2-5.4) 10^6/uL Hgb 10.8 L (12.0-16.0) g/dL Hct 33.2 L (37.0-47.0) % MCV 77.8 L (80-100) fL MCH 25.3 L (27.0-34.0) pg MCHC 32.5 L (33.0-35.0) g/dL Plt Count 304 D (150-450) 10^3/uL Neut % (Auto) 95.8 H (42.2-75.2) % Lymph % (Auto) 2.6 L (20.5-50.1) % [place] % (Auto) 1.5 L (2-8) % Eos % (Auto) 0.0 L (1.0-3.0) % Baso % (Auto) 0.1 (0.0-1.0) % PT (9.0-12.0) SEC INR (0.9-1.2) D-Dimer, Quantitative (0-400) ng/mL Sodium 137 (136-145) mmol/L Potassium 2.6 L (3.5-5.1) mmol/L Chloride 100 (98-107) mmol/L Carbon Dioxide 20 L (21-32) mmol/L Anion Gap 19.6 H (7-13) mEq/L BUN 18 (7-18) mg/dL Creatinine 0.90 (0.55-1.02) mg/dL Est Cr Clr Drug Dosing 66.67 mL/min Estimated GFR (MDRD) > 60 BUN/Creatinine Ratio 20.0 (No establ ref range) Glucose 126 H (74-99) mg/dL Lactic Acid 2.6 H* (0.4-2.0) mmol/L Calcium 8.6 (8.5-10.1) mg/dL Total Bilirubin 1.3 H (0.2-1.0) mg/dL AST 12 L (15-37) U/L ALT 13 L (14-59) U/L Alkaline Phosphatase 95 (46-116) U/L C-Reactive Protein 41.6 H (0.0-0.9) mg/dL Total Protein 7.3 (6.4-8.2) g/dL Albumin 2.3 L (3.4-5.0) g/dL Globulin 5.0 Albumin/Globulin Ratio 0.46 Urine Color (YELLOW) Urine Appearance (CLEAR) Urine pH (5.0-9.0) Ur Specific [place] (1.005-1.030) Urine Protein (NEGATIVE) Urine Glucose (UA) (NEGATIVE) Urine Ketones (NEGATIVE) Urine Occult Blood (NEGATIVE) Urine Nitrite (NEGATIVE) Urine Bilirubin (NEGATIVE) Urine Urobilinogen (0.2-1.0) mg/dL Ur Leukocyte Esterase (NEGATIVE) Urine RBC /HPF Urine WBC (0-5/HPF) /HPF Ur Epithelial Cells (NOT SEEN) /HPF Amorphous Sediment (NOT SEEN) /HPF Urine Bacteria (0-FEW/HPF) /HPF Urine Mucus (NOT SEEN) /LPF Urine HCG, Qual SARS-CoV-2 RNA (TAVO) (NEGATIVE) 07/19/20 07/19/20 07/19/20 Range/Units 09:40 10:11 13:18 WBC (5.0-10.0) 10^3/uL RBC (4.2-5.4) 10^6/uL Hgb (12.0-16.0) g/dL Hct (37.0-47.0) % MCV (80-100) fL MCH (27.0-34.0) pg MCHC (33.0-35.0) g/dL Plt Count (150-450) 10^3/uL Neut % (Auto) (42.2-75.2) % Lymph % (Auto) (20.5-50.1) % [place] % (Auto) (2-8) % Eos % (Auto) (1.0-3.0) % Baso % (Auto) (0.0-1.0) % PT 14.7 H D (9.0-12.0) SEC INR 1.6 H (0.9-1.2) D-Dimer, Quantitative 2570 H (0-400) ng/mL Sodium (136-145) mmol/L Potassium (3.5-5.1) mmol/L Chloride (98-107) mmol/L Carbon Dioxide (21-32) mmol/L Anion Gap (7-13) mEq/L BUN (7-18) mg/dL Creatinine (0.55-1.02) mg/dL Est Cr Clr Drug Dosing mL/min Estimated GFR (MDRD) BUN/Creatinine Ratio (No establ ref range) Glucose (74-99) mg/dL Lactic Acid (0.4-2.0) mmol/L Calcium (8.5-10.1) mg/dL Total Bilirubin (0.2-1.0) mg/dL AST (15-37) U/L ALT (14-59) U/L Alkaline Phosphatase (46-116) U/L C-Reactive Protein (0.0-0.9) mg/dL Total Protein (6.4-8.2) g/dL Albumin (3.4-5.0) g/dL Globulin Albumin/Globulin Ratio Urine Color Dark yellow (YELLOW) Urine Appearance Turbid (CLEAR) Urine pH 5.5 (5.0-9.0) Ur Specific [place] 1.010 (1.005-1.030) Urine Protein 100 H (NEGATIVE) Urine Glucose (UA) Negative (NEGATIVE) Urine Ketones Negative (NEGATIVE) Urine Occult Blood Large H (NEGATIVE) Urine Nitrite Negative (NEGATIVE) Urine Bilirubin Small H (NEGATIVE) Urine Urobilinogen 2.0 H (0.2-1.0) mg/dL Ur Leukocyte Esterase Small H (NEGATIVE) Urine RBC 75-100 H /HPF Urine WBC 50-75 H (0-5/HPF) /HPF Ur Epithelial Cells Few (NOT SEEN) /HPF Amorphous Sediment Few (NOT SEEN) /HPF Urine Bacteria Few (0-FEW/HPF) /HPF Urine Mucus Rare (NOT SEEN) /LPF Urine HCG, Qual SARS-CoV-2 RNA (TAVO) Negative (NEGATIVE) 07/19/20 07/19/20 Range/Units 13:18 15:03 WBC (5.0-10.0) 10^3/uL RBC (4.2-5.4) 10^6/uL Hgb (12.0-16.0) g/dL Hct (37.0-47.0) % MCV (80-100) fL MCH (27.0-34.0) pg MCHC (33.0-35.0) g/dL Plt Count (150-450) 10^3/uL Neut % (Auto) (42.2-75.2) % Lymph % (Auto) (20.5-50.1) % [place] % (Auto) (2-8) % Eos % (Auto) (1.0-3.0) % Baso % (Auto) (0.0-1.0) % PT (9.0-12.0) SEC INR (0.9-1.2) D-Dimer, Quantitative (0-400) ng/mL Sodium (136-145) mmol/L Potassium (3.5-5.1) mmol/L Chloride (98-107) mmol/L Carbon Dioxide (21-32) mmol/L Anion Gap (7-13) mEq/L BUN (7-18) mg/dL Creatinine (0.55-1.02) mg/dL Est Cr Clr Drug Dosing mL/min Estimated GFR (MDRD) BUN/Creatinine Ratio (No establ ref range) Glucose (74-99) mg/dL Lactic Acid 1.5 (0.4-2.0) mmol/L Calcium (8.5-10.1) mg/dL Total Bilirubin (0.2-1.0) mg/dL AST (15-37) U/L ALT (14-59) U/L Alkaline Phosphatase (46-116) U/L C-Reactive Protein (0.0-0.9) mg/dL Total Protein (6.4-8.2) g/dL Albumin (3.4-5.0) g/dL Globulin Albumin/Globulin Ratio Urine Color (YELLOW) Urine Appearance (CLEAR) Urine pH (5.0-9.0) Ur Specific [place] (1.005-1.030) Urine Protein (NEGATIVE) Urine Glucose (UA) (NEGATIVE) Urine Ketones (NEGATIVE) Urine Occult Blood (NEGATIVE) Urine Nitrite (NEGATIVE) Urine Bilirubin (NEGATIVE) Urine Urobilinogen (0.2-1.0) mg/dL Ur Leukocyte Esterase (NEGATIVE) Urine RBC /HPF Urine WBC (0-5/HPF) /HPF Ur Epithelial Cells (NOT SEEN) /HPF Amorphous Sediment (NOT SEEN) /HPF Urine Bacteria (0-FEW/HPF) /HPF Urine Mucus (NOT SEEN) /LPF Urine HCG, Qual Negative SARS-CoV-2 RNA (TAVO) (NEGATIVE) Med Orders - Current: Current Medications Acetaminophen (Tylenol Extra Strength) 500 mg PO Q4H PRN PRN Reason: Pain Last Admin: 07/19/20 14:02 Dose: 500 mg Documented by: Apixaban (Eliquis) 5 mg PO BID [facility] Atenolol (Tenormin) 100 mg PO DAILY [facility] Hydromorphone HCl (Dilaudid) 2 mg IVPUSH Q1H PRN PRN Reason: Abdominal Pain Last Admin: 07/19/20 14:43 Dose: 2 mg Documented by: Hydroxychloroquine Sulfate (Plaquenil) 200 mg PO BID [facility] Potassium Chloride 10 meq/ (Premix) 100 mls @ 100 mls/hr IV Q1H [facility] Stop: 07/19/20 19:59 Last Admin: 07/19/20 16:40 Dose: 100 mls/hr Documented by: Piperacillin Sod/Tazobactam (Sod 3.375 gm/ Sodium Chloride) 100 mls @ 200 mls/hr IV Q6H [facility] Last Admin: 07/19/20 17:06 Dose: 200 mls/hr Documented by: Vancomycin HCl 1.25 gm/ Sodium (Chloride) 250 mls @ 166.667 mls/hr IV Q12H [facility] Last Admin: 07/19/20 15:30 Dose: 166.667 mls/hr Documented by: Sodium Chloride (Normal Saline) 1,000 mls @ 100 mls/hr IV ASDIRECTED [facility] Lisinopril (Prinivil) 40 mg PO DAILY [facility] Non-Formulary Medication (Diclofenac Sodium [Diclofenac Sodium]) 1 applic TOP ASDIRECTED [facility] Potassium Chloride (Klor-Con 10) 40 meq PO DAILY [facility] Last Admin: 07/19/20 13:58 Dose: 40 meq Documented by: Sodium Chloride (Saline Flush) 10 ml FLUSH ASDIRECTED PRN PRN Reason: Keep Vein Open Tramadol HCl (Ultram) 100 mg PO TID PRN PRN Reason: Pain Last Admin: 07/19/20 14:34 Dose: 100 mg Documented by: Vancomycin HCl (Pharmacy To Dose - Vancomycin) 1 dose .XX ASDIRECTED [facility] Discontinued Medications Piperacillin Sod/Tazobactam (Sod 3.375 gm/ Sodium Chloride) 100 mls @ 200 mls/hr IV ONETIME ONE Stop: 07/19/20 10:58 Last Infusion: 07/19/20 11:21 Dose: Infused Documented by: Sodium Chloride (Normal Saline) 1,000 mls @ 999 mls/hr IV .BOLUS ONE Stop: 07/19/20 12:06 Last Infusion: 07/19/20 12:56 Dose: Infused Documented by: Iopamidol ([id number] (76%)) 100 ml IVPUSH ONETIME ONE Stop: 07/19/20 11:07 Last Admin: 07/19/20 12:10 Dose: 83 ml Documented by: - Exam General: Reports: Alert, Oriented HEENT: Reports: Pupils Equal, Pupils Reactive, EOMI, Mucous Membr. Moist/[place] Neck: Reports: Supple Lungs: Reports: Clear to Auscultation, Normal Respiratory Effort Cardiovascular: Reports: Regular Rate, Regular Rhythm GI/Abdominal Exam: Normal Bowel Sounds, Soft, Non-Tender, No Organomegaly, No Distention, No Abnormal Bruit, No Mass, Pelvis Stable (Female) Exam: Other (Right groin erythema, differential warmth, tenderness and swelling) Back Exam: Reports: Normal Inspection, Full Range of Motion Extremities: Normal Inspection, Normal Range of Motion, Non-Tender, No Pedal Edema, Normal Capillary Refill Skin: Reports: Warm, Rash Neurological: Reports: No New Focal Deficit Psy/Mental Status: Reports: Alert, Normal Affect, Normal Mood *Q Meaningful Use (DIS) - VTE *Q VTE Anticoagulation Contraindications: Alternative [place] Request PT
[2020-07-19] MEDS ORDERED: Apixaban 5 MG Tab PO SCH (21:00)
[2020-07-19] MEDS ORDERED: Hydroxychloroquine 200 MG Tab PO SCH (21:00)
[2020-07-20] MEDS ORDERED: Lisinopril 20 MG Tab PO SCH (09:00)
[2020-07-20] MEDS ORDERED: Atenolol 50 MG Tab PO SCH (09:00)
--- NOTE | 2020-07-21 10:34 | US ---
PROCEDURE INFORMATION: Exam: US Right Non-Vascular Joint or Other Extremity Structure, Limited Lower Extremity Exam date and time: 07/19/2020 3:16 PM Age: 45 years old Clinical indication: Pain; Thigh; Right; Additional info: Swelling right groin TECHNIQUE: Imaging protocol: Right US joint or other nonvascular extremity structure or structures. Real-time ultrasound with image documentation. Limited study. Exam focused on the lower extremity in the region of clinical interest. COMPARISON: No relevant prior studies available. FINDINGS: Soft tissues: Irregularly-shaped fluid collection in the medial right groin measuring approximately 1.8 by 1.4 x 0.6 cm. This could be a small seroma, hematoma or abscess. IMPRESSION: 1.8 cm right inguinal fluid collection could be a small abscess, hematoma or seroma.
== END 2020-07-19 19:35 | DRG 720 ==
LOC: DL.ED 09:14 → DL.MS 12:56
PROVIDERS: ADMIT Internal Medicine; ATTEND Internal Medicine
DX: A41.9 Sepsis, unspecified organism (principal); N39.0 Urinary tract infection, site not specified; I10 Essential (primary) hypertension; J45.909 Unspecified asthma, uncomplicated; Z96.642 Presence of left artificial hip joint; Z86.711 Personal history of pulmonary embolism; Z79.01 Long term (current) use of anticoagulants; E87.6 Hypokalemia; E78.5 Hyperlipidemia, unspecified; H54.7 Unspecified visual loss; F41.9 Anxiety disorder, unspecified; Z90.710 Acquired absence of both cervix and uterus; L02.214 Cutaneous abscess of groin; L03.314 Cellulitis of groin; E87.2 Acidosis; M32.9 Systemic lupus erythematosus, unspecified; D64.9 Anemia, unspecified; Z20.822 Contact with and (suspected) exposure to COVID-19
CPT/HCPCS: 36415; 71260; 76881-RT; 80053; 81001; 81025; 83605; 85025; 85379; 85610; 86140; 87040; 87086; 87088; 87186; 96365; 99284; 99285-25; A9270-GY; J1170; J2543; J3370; J3480; J7030; J7050; Q9967; U0002

== ENCOUNTER 2021-05-16 16:17 | Emergency (ER) | payer BC, OTHER ==
[2021-05-16 16:44] VITALS: BP 170/112; PULSE 100
--- NOTE | 2021-05-16 16:48 | EDM.PDOC ---
ED HPI GENERAL MEDICAL PROBLEM - General Chief Complaint: Respiratory Problem Stated Complaint: respiratory Time Seen by Provider: 05/16/21 16:48 Source of Information: Reports: Patient, Old Records, RN, RN Notes Reviewed History Limitations: Reports: No Limitations - History of Present Illness INITIAL COMMENTS - FREE TEXT/NARRATIVE: Pt presents to ER with c/o onset of shortness of breath last night with fever and body aches. Hx of blood clots in lung last year. Pt is on chronic Eliquis for anticoagulation, but stopped it Tuesday05/16/21 because she is having a procedure done on a neck spur on 05/18/21. Admits to nausea. Denies vomiting, diarrhea, abdominal pain, or chest pain. Onset: Gradual Onset Date: 05/15/21 Duration: Constant Location: Reports: Chest, Generalized Quality: Reports: Ache Severity: Severe Improves with: Reports: None Worsens with: Reports: None Associated Symptoms: Reports: No Other Symptoms - Related Data Allergies Allergy/AdvReac Type Severity Reaction Status Date / Time atorvastatin Allergy Muscle Verified 07/19/20 09:36 Aches Sulfa (Sulfonamide Allergy Swollen Verified 07/19/20 09:36 Antibiotics) Eyes Home Meds: Home Meds Hydroxychloroquine Sulfate [Plaquenil] 200 mg PO BID 08/30/15 [History] traMADol [Ultram] 100 mg PO TID PRN 08/30/15 [History] Carbidopa/Levodopa [Carbidopa-Levodopa 25-100] 1 tab PO BEDTIME PRN MDD restless legs 05/26/20 [History] atenoloL [Atenolol] 100 mg PO DAILY 05/26/20 [History] lisinopriL [Lisinopril] 40 mg PO DAILY 05/26/20 [History] Acetaminophen 500 mg PO Q4HR PRN 06/05/20 [History] Apixaban [Eliquis] 5 mg PO BID 06/29/20 [History] Diclofenac Sodium 1 applic TOP ASDIRECTED 07/19/20 [History] Ibuprofen 800 mg PO Q12HR 07/19/20 [History] Potassium Chloride [K-Tab ER] 40 meq PO DAILY 07/19/20 [History] Past Medical History HEENT History: Reports: Impaired Vision Cardiovascular History: Reports: High Cholesterol, Hypertension Respiratory History: Reports: Asthma, PE Gastrointestinal History: Reports: None Genitourinary History: Reports: None [employer] History: Reports: Musculoskeletal History: Reports: Back Pain, Chronic, Other (See Below) Other Musculoskeletal History: 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, does have a brace on Neurological History: Reports: Migraines Psychiatric History: Reports: Anxiety Endocrine/Metabolic History: Reports: Obesity/BMI 30+ Hematologic History: Reports: None Immunologic History: Reports: SLE Other Immunologic History: lupus Oncologic (Cancer) History: Reports: None Dermatologic History: Reports: None - Infectious Disease History Infectious Disease History: Reports: None - Past Surgical History Head Surgeries/Procedures: Reports: None HEENT Surgical History: Reports: None Cardiovascular Surgical History: Reports: None Female Surgical History: Reports: Hysterectomy Neurological Surgical History: Reports: None Musculoskeletal Surgical History: Reports: Other (See Below) Other Musculoskeletal Surgeries/Procedures:: hip surgery Social & Family History - Family History Family Medical History: No Pertinent Family History - Caffeine Use Caffeine Use: Reports: None - Living Situation & Occupation Living situation: Reports: Single Occupation: Employed ED ROS GENERAL - Review of Systems Review Of Systems: Comprehensive ROS is negative, except as noted in HPI. ED EXAM, GENERAL - Physical Exam Exam: See Below Exam Limited By: No Limitations General Appearance: Alert, No Apparent Distress, Obese Eye Exam: Bilateral Eye: Normal Inspection Nose: No Blood, Nasal Drainage (clear) Throat/Mouth: Normal Inspection, Normal Lips, Normal Oropharynx, Normal Voice, No Airway Compromise Head: Atraumatic, Normocephalic Neck: Normal Inspection, Supple, Non-Tender, Full Range of Motion Respiratory/Chest: No Respiratory Distress, No Accessory Muscle Use, Chest Non- Tender, Decreased Breath Sounds, Wheezing. No: Crackles, Rales, Rhonchi Cardiovascular: Regular Rate, Rhythm, Tachycardia GI/Abdominal: Normal Bowel Sounds, Soft, Non-Tender Extremities: Normal Range of Motion, Non-Tender Neurological: Alert, Oriented, No Motor/Sensory Deficits Psychiatric: Anxious Skin Exam: Warm, Dry, Intact, Normal Color, No Rash Course - Vital Signs Last Recorded V/S: Last Vital Signs Temp 99.1 F 05/16/21 16:40 Pulse 100 05/16/21 17:04 Resp 24 H 05/16/21 16:40 BP 170/112 H 05/16/21 16:40 Pulse Ox 96 05/16/21 16:40 - Orders/Labs/Meds Orders: Active Orders 24 hr Category Date Time Status Peripheral IV Care [RC] . DIRECTED Care 05/16/21 16:56 Active RT Aerosol Therapy [RC] ASDIRECTED Care 05/16/21 16:55 Active Sodium Chloride 0.9% [Saline Flush] Med 05/16/21 16:55 Active 10 ml FLUSH ASDIRECTED PRN Peripheral IV Insertion Adult [OM.PC] Stat Oth 05/16/21 16:56 Ordered Medication Orders Sodium Chloride (Sodium Chloride 0.9% 10 Ml Syringe) 10 ml FLUSH ASDIRECTED PRN PRN Reason: Keep Vein Open Last Admin: 05/16/21 17:49 Dose: 10 ml Documented by: BESSIE Labs: Laboratory Tests 05/16/21 05/16/21 05/16/21 Range/Units 16:35 16:35 16:40 WBC 12.3 H (5.0-10.0) 10^3/uL RBC 5.65 H (4.2-5.4) 10^6/uL Hgb 14.5 D (12.0-16.0) g/dL Hct 43.7 (37.0-47.0) % MCV 77.3 L (80-100) fL MCH 25.7 L (27.0-34.0) pg MCHC 33.2 (33.0-35.0) g/dL Plt Count 212 D (150-450) 10^3/uL Neut % (Auto) 92.1 H (42.2-75.2) % Lymph % (Auto) 3.0 L (20.5-50.1) % Benson % (Auto) 4.5 (2-8) % Eos % (Auto) 0.2 L (1.0-3.0) % Baso % (Auto) 0.2 (0.0-1.0) % Sodium 137 (136-145) mmol/L Potassium 4.0 (3.5-5.1) mmol/L Chloride 100 (98-107) mmol/L Carbon Dioxide 21 (21-32) mmol/L Anion Gap 20.0 H (7-13) mEq/L BUN 21 H (7-18) mg/dL Creatinine 0.64 (0.55-1.02) mg/dL Est Cr Clr Drug Dosing 92.79 mL/min Estimated GFR (MDRD) > 60 BUN/Creatinine Ratio 32.8 (No establ ref range) Glucose 118 H (70-99) mg/dL Calcium 8.9 (8.5-10.1) mg/dL Total Bilirubin 0.3 (0.2-1.0) mg/dL AST 25 (15-37) U/L ALT 23 (14-59) U/L Alkaline Phosphatase 100 (46-116) U/L B-Natriuretic Peptide 72 (0-100) pg/ml Total Protein 7.7 (6.4-8.2) g/dL Albumin 3.5 (3.4-5.0) g/dL Globulin 4.2 Albumin/Globulin Ratio 0.8 Influenza Type A RNA Positive H (NEGATIVE) Influenza Type B RNA Negative (NEGATIVE) SARS-CoV-2 RNA (TAVO) Negative (NEGATIVE) Meds: Medications Generic Name Dose Route Start Last Admin Trade Name Freq PRN Reason Stop Dose Admin Sodium Chloride 10 ml 05/16/21 16:55 05/16/21 17:49 Sodium Chloride 0.9% 10 Ml Syringe FLUSH 10 ml ASDIRECTED PRN Administration Keep Vein Open Discontinued Medications Generic Name Dose Route Start Last Admin Trade Name Freq PRN Reason Stop Dose Admin Hydrocodone Bitart/Acetaminophen 1 tab 05/16/21 16:54 05/16/21 17:15 Acetaminophen/Hydrocodone 325-10 Mg Tab PO 05/16/21 16:55 1 tab ONETIME ONE Administration Albuterol/Ipratropium 3 ml 05/16/21 16:54 05/16/21 17:04 Albuterol/Ipratropium 3.0-0.5 Mg/3 Ml Neb Soln NEB 05/16/21 16:55 3 ml ONETIME ONE Administration Diphenhydramine HCl 50 mg 05/16/21 18:26 Diphenhydramine 25 Mg Tab PO 05/16/21 18:27 ONETIME ONE Ondansetron HCl 4 mg 05/16/21 16:54 05/16/21 17:15 Ondansetron 4 Mg/2 Ml Sdv IV 05/16/21 16:55 4 mg ONETIME ONE Administration Oseltamivir Phosphate 75 mg 05/16/21 18:23 Oseltamivir 75 Mg Cap PO 05/16/21 18:24 ONETIME ONE - Radiology Interpretation Free Text/Narrative:: [facility] [place] [facility] Final Radiology Report Call: [phone] assistance Online chat: [email or web address] Name: SHIRLEY TERAN Age: 46Years F Date: 05/16/2021 SSN: -- : [id number] Study: CR CHEST 1V FRONTAL Requesting Physician: SHANTELLE GLASGOW Images: 1 Addl Studies: Provided Clinical History: short of breath, fever, cough Contrast: Contrast Medium: Contrast Amount: Contrast Method: CONFIDENTIALITY STATEMENT This report is intended only for use by the referring physician, and only in accordance with law. If you received this in error, call [phone]. Page 1 of 1 PROCEDURE INFORMATION: Exam: XR Chest Exam date and time: 05/16/2021 5:25 PM Age: 46 years old Clinical indication: Cough and fever and shortness of breath; Additional info: Short of breath, fever, cough TECHNIQUE: Imaging protocol: XR of the chest. Views: 1 view. Total images: 1 COMPARISON: CR Chest 1V Frontal 05/26/2020 9:11 AM FINDINGS: Lungs: Lung volumes are low. Patchy lung ground-glass opacities mid and lower left and lower right lung. Pleural spaces: Unremarkable. No pleural effusion. No pneumothorax. Heart/Mediastinum: Unremarkable. No cardiomegaly. Bones/joints: Unremarkable. Soft tissues: Metallic foreign bodies overlie the left chest. IMPRESSION: Patchy bilateral pneumonia. Correlate for atypical infections. Thank you for allowing us to participate in the care of your patient. Dictated and Authenticated by: Edward Greenwood MD 05/16/2021 5:46 PM Central Time ([place] & [place]) Departure - Departure Time of Disposition: 18:27 Disposition: Home, Self-Care 01 Condition: Fair Clinical Impression: Influenza A - Discharge Information *PRESCRIPTION DRUG MONITORING PROGRAM REVIEWED*: Not Applicable *COPY OF PRESCRIPTION DRUG MONITORING REPORT IN PATIENT YAS: Not Applicable Instructions: Influenza, Adult Forms: ED Department Discharge Additional Instructions: Rx: Tamiflu 75mg Rx: Zofran 4mg Use Tylenol (Acetaminophen) and/or Ibuprofen (Motrin/Advil) as needed for fevers or body aches. Follow directions on label for dosing and precautions. Drink plenty of water, Pedialyte, or Gatorade. Follow up in clinic or return to ER if you develop any difficulty breathing. Sepsis Event Note (ED) - Focused Exam Vital Signs: Vital Signs Temp Pulse Resp BP Pulse Ox 05/16/21 17:04 100 05/16/21 16:40 99.1 F 100 24 H 170/112 H 96 - My Orders Last 24 Hours: My Active Orders 05/16/21 16:55 RT Aerosol Therapy [RC] ASDIRECTED Sodium Chloride 0.9% [Saline Flush] 10 ml FLUSH ASDIRECTED PRN 05/16/21 16:56 Peripheral IV Care [RC] . DIRECTED Peripheral IV Insertion Adult [OM.PC] Stat - Assessment/Plan Last 24 Hours: My Active Orders 05/16/21 16:55 RT Aerosol Therapy [RC] ASDIRECTED Sodium Chloride 0.9% [Saline Flush] 10 ml FLUSH ASDIRECTED PRN 05/16/21 16:56 Peripheral IV Care [RC] . DIRECTED Peripheral IV Insertion Adult [OM.PC] Stat
[2021-05-16] MEDS ORDERED: Acetaminophen/HYDROcodone 325-10 MG Tab PO ONE (16:54)
[2021-05-16] MEDS ORDERED: Ondansetron 4 MG/2 ML SDV IV ONE (16:54)
[2021-05-16] MEDS ORDERED: Albuterol/Ipratropium 3.0-0.5 MG/3 ML Neb Soln NEB ONE (16:54)
[2021-05-16] MEDS ORDERED: Sodium Chloride 0.9% 10 ML Syringe FLUSH PRN (16:55)
[2021-05-16 17:34] LABS: CHLORIDE,CL 100 mmol/L (98-107); SODIUM,NA 137 mmol/L (136-145)
--- NOTE | 2021-05-16 17:47 | CR ---
PROCEDURE INFORMATION: Exam: XR Chest Exam date and time: 05/16/2021 5:25 PM Age: 46 years old Clinical indication: Cough and fever and shortness of breath; Additional info: Short of breath, fever, cough TECHNIQUE: Imaging protocol: XR of the chest. Views: 1 view. Total images: 1 COMPARISON: CR Chest 1V Frontal 05/26/2020 9:11 AM FINDINGS: Lungs: Lung volumes are low. Patchy lung ground-glass opacities mid and lower left and lower right lung. Pleural spaces: Unremarkable. No pleural effusion. No pneumothorax. Heart/Mediastinum: Unremarkable. No cardiomegaly. Bones/joints: Unremarkable. Soft tissues: Metallic foreign bodies overlie the left chest. IMPRESSION: Patchy bilateral pneumonia. Correlate for atypical infections.
[2021-05-16 18:12] LABS: CORONAVIRUS COVID-19 NAA NEGATIVE (NEGATIVE)
[2021-05-16] MEDS ORDERED: Oseltamivir 75 MG Cap PO ONE (18:23)
[2021-05-16] MEDS ORDERED: diphenhydrAMINE 25 MG Tab PO ONE (18:26)
== END 2021-05-16 18:49 | disposition home or self-care (01) ==
LOC: DL.ED 16:17
DX: J10.1 Influenza due to other identified influenza virus with other respiratory manifestations (principal); I10 Essential (primary) hypertension; J45.909 Unspecified asthma, uncomplicated; E66.9 Obesity, unspecified; M32.9 Systemic lupus erythematosus, unspecified; Z68.43 Body mass index [BMI] 50.0-59.9, adult; Z20.822 Contact with and (suspected) exposure to COVID-19; Z88.8 Allergy status to other drugs, medicaments and biological substances; Z88.2 Allergy status to sulfonamides; Z79.01 Long term (current) use of anticoagulants; Z79.899 Other long term (current) drug therapy; Z86.711 Personal history of pulmonary embolism
CPT/HCPCS: 0240U; 36415; 71045; 80053; 83880; 85025; 94640; 96374; 99284; A9270; J2405; J7620-GY

== ENCOUNTER 2021-09-07 13:30 | Emergency (ER) | payer BC, OTHER ==
[2021-09-07 17:08] VITALS: BP 148/110; PULSE 87
== END 2021-09-07 18:00 | disposition home or self-care (01) ==
LOC: DL.ED 13:30
DX: L03.211 Cellulitis of face (principal); E78.00 Pure hypercholesterolemia, unspecified; I10 Essential (primary) hypertension; E66.9 Obesity, unspecified; Z88.2 Allergy status to sulfonamides; Z88.8 Allergy status to other drugs, medicaments and biological substances; Z79.01 Long term (current) use of anticoagulants; Z79.899 Other long term (current) drug therapy; Z68.44 Body mass index [BMI] 60.0-69.9, adult
CPT/HCPCS: 99283